=== PATIENT | male | born 1950 | race Caucasian/White ===

== ENCOUNTER 2017-01-27 06:27 | Inpatient (IN) ==
--- NOTE | 2017-01-27 06:58 | Anesthesia Evaluation PreOp ---
Date of Encounter: 01/27/17 Time of Encounter: 06:51 - Past History Planned Operation: Lapb sly with cholangiogram Cardiac History: Hyperlipidemia, Other (It is very difficult to communicate with Mr. De Anda. 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), Other (depression/ anxiety, chronic pain,) Other Medical History: Denies Any Significant HX, GERD Anesthesia History: Past Anesthesia (unknown) Alcohol Use: unknown Drug use: none Medications and Allergies Allergies bacitracin Allergy (Verified 10/18/16 16:47) Anaphylaxis Neomycin Allergy (Verified 10/18/16 16:47) Anaphylaxis polymyxin B Allergy (Verified 10/18/16 16:47) Anaphylaxis - Meds/Allergy Pre-op Review Medications Reviewed: Yes Allergies Reviewed: Yes Beta Blockers on Current Med List: No Anesthesia Results - Labs Laboratory Tests 10/18/16 01/15/17 17:04 09:10 Hgb 16.7 Hct 50.1 Plt Count 219 Sodium 141 Potassium 3.9 Creatinine 0.77 Anesthesia Exam O2 Sat Height 1.68 m Height 1.68 m Weight 77.111 kg Weight 77.111 kg O2 Sat by Pulse Oximetry 91 Vital Signs Temp Pulse Resp BP Pulse Ox 97.4 F L 102 16 122/79 91 01/27/17 06:44 01/27/17 06:44 01/27/17 06:44 01/27/17 06:44 01/27/17 06:44 Height: 1.68 Weight: 77 NPO (# of Hours): >8 - HEENT Pupil (Motor): Pupils equal, EOMI Mallampati: II Teeth: Edentulous Oral Opening: Greater than 3 - PUBLIC POLICY ASSOCIATE LOC: Unable to assess PUBLIC POLICY ASSOCIATE Motor: Normal LUE, Normal LLE, Normal Face, Deficit RUE, Deficit RLE PUBLIC POLICY ASSOCIATE Sensory: Normal: LUE, LLE, Face, Deficit: RUE, RLE - Cardiac Rhythm: Regular Murmur: None - Pulmonary Breath Sounds: bilateral Clear Respiratory Effort: Symmetrical Anesthesia Assess/Plan ASA Score: 3 (DO NOT USE SUXCONSENT IS PENDING FROM POA) Modified Severo Scale for Level of Consciousness: Cooperative, oriented, and tranquil Anesthetic Plan: General Monitoring Plan: Standard Monitors Recovery Plan: PACU
[2017-01-27] MEDS ORDERED: Ondansetron 4 MG/2 ML VIAL ONE ×2 (07:24→10:09)
[2017-01-27] MEDS ORDERED: *HR* Rocuronium Bromide 50 MG/5 ML VIAL ONE (07:24)
[2017-01-27] MEDS ORDERED: *HR* Propofol 200 MG/20 ML VIAL IVP ONE (07:24)
[2017-01-27] MEDS ORDERED: *HR* FentaNYL (PF) 100 MCG/2 ML VIAL ONE ×2 (07:24→08:34)
[2017-01-27] MEDS ORDERED: Lidocaine -MPF 2% 2 ML VIAL ONE (07:24)
[2017-01-27] MEDS ORDERED: cefOXitin 2,000 MG in D5% in Water (Mini-Bag+) 100 ML IVPB ONE (07:26)
--- NOTE | 2017-01-27 07:26 | History & Physical Report ---
Date of Encounter: 01/27/17 Time of Encounter: 07:25 24 Hour HP Update - Instructions Instructions: If the History and Physical is less than 30 days old and was completed prior to A.M. admission and or procedure and has NOT been updated on calendar day of procedure please complete this update prior to performing procedure. - Update Patient reports changes in Medical Condition: No Changes in examination, assessment, or condition: No Changes in Medication: No Surgery Remains Indicated: Yes Consent for Planned Operative Procedure(s) Verified: Yes - Pre-Operative Checklist Prophylactic Antibiotic Ordered: Yes Home Medications Include Beta Pilar: No Is VTE Prophylaxis Indicated?: Yes
[2017-01-27] MEDS: Ringers Solution, Lactated 1,000 ML IVC SCH ×2 (07:38→10:30)
[2017-01-27] MEDS ORDERED: *HR* HYDROmorphone 2 MG/ML SYRINGE ONE (08:33)
[2017-01-27] MEDS ORDERED: Neostigmine Methylsulfate 3 MG/3 ML SYRINGE ONE (09:36)
--- NOTE | 2017-01-27 09:57 | Operative Note ---
Date of procedure: 01/27/17 Pre-op diagnosis: acute cholecystisis Post-op diagnosis: same Procedure: laparoscopic converted to open cholecystectomy Complications: none immediate Anesthesia: GETA, local Local Anesthetics: 0.5% Sensorcaine HCL SubQ (cc) (30) Surgeon: Tanesha Ray Degree Clerk: Albina Berrios Estimated blood loss (cc): 100 Specimen: gallbladder Condition: stable Disposition: PACU Procedure in Detail: The patient was brought into the operating suite and placed supine on the operating table. Sign-in was performed and everyone was in agreement. Anesthesia was induced and patient was endotracheally intubated by anesthesia without incident and they also placed an OG tube. The abdomen was prepped and draped in the usual sterile fashion. A timeout was performed again everyone was in agreement. A supraumbilical incision was made through the skin into the subcutaneous tissue with an 11 blade. Towel clamps were placed on either side of the umbilicus for retraction. S retractors were used to dissect down to the anterior abdominal wall linea alba fascia. A Veress needle was placed through this incision and a water drop test confirmed placement and the abdomen was insufflated. The abdomen was entered with a 5 mm 0 degree laparoscope on a 5 mm X-jacob trocar. The area and entry was visualized was no bleeding and no apparent bowel injury. A 5 mm subxiphoid port was placed under direct visualization after first incising the skin with an 11 blade. A right upper quadrant subcostal position midclavicular line 5 mm port was placed under direct visualization after first incising skin with 11 blade. The laparoscope was placed in this and we exchanged the supraumbilical port for a 12 mm port under direct visualization. The last 5 mm port was placed in the right upper quadrant subcostal position anterior axillary line after first incising the skin with an 11 blade. The patient was placed in steep reverse Trendelenburg left side down position. the gallbladder was very distended tense erythematous Using a laparoscopic aspirator bile was aspirated from the gallbladder allowing it grasped at the domeand retracted cephalad. The infundibulum was grasped and retracted laterally but iIt was extremely friable and just tore. The area of the cystic duct and artery was very fibrotic and firm and dissection was extremely difficult. Attempts to identify the cystic duct and artery were unsuccessful with blunt dissection with suction tip, [place] and [place]. The decision was made to convert to open. Using a 15 blade a Kocker incision in the right upper quadrant was made through the skin into the subcutaneous tissue. Dissection through the external rectus sheath was done with Bovie. The rectus muscle was split with the bovie. The posterior rectus fascia was opened with the bovie and the incision extended. The dome of the gallbladder was grasped with a kocker. The gallbladder was taken down off the liver in a dome down fashion. Using a right angle the cystic artery was dissected and two 5 mm plastic hemoclips were placed proximally one distally and it was transected with metzenbaum scissors. The gallbladder was opened longitudinally in an attempt to help locate the cystic duct. The cystic duct was very short and dissected free bluntly with right angle and with cautery. Two 10 mm plastic hemoclips were placed distally on the cystic duct and it was transected with metzenbaum scissors. The RUQ was irrigated with sterile saline. A 10 mm SAIMA drain was placed into the gallbladder fossa after first making incision in right abdominal wall with 15 blade. The SAIMA drain was secured to the skin with a 2-0 silk stitch. The peritoneum was reapproximated with an 0 vicryl running stitch. THe posterior and anterior rectus fascia were each reapproximated with a #1 nonlooped running pds stitches. THe subcutaneous tissue was irrigated with sterile saline. The subcutaneous tissue was reapproximated with 3-0 vicryl interrupted stitches and the skin closed with glory. A drain sponge was placed at SAIMA drain site, 4x4 gauze and tape were applied to wound. The supraumbilical incision was closed first with an 0 vicryl figure of eight stitch at the fascia and the skin was closed with glory. The patient tolerated the procedure well and all lap and instrument counts were correct at the end of the case. He was taken to pacu in stable condition.
[2017-01-27] MEDS ORDERED: *HR* HYDROmorphone (PF) 1 MG/ML SYRINGE IVP PRN (10:07)
[2017-01-27] MEDS ORDERED: Ondansetron 4 MG/2 ML VIAL IVP PRN (10:07)
--- NOTE | 2017-01-27 10:29 | Anesthesia Evaluation Post Op ---
Date of Encounter: 01/27/17 Time of Encounter: 10:28 - Vital Signs Vital Signs: Vital Signs/O2 Sat/Glucose, Most Current Temp Pulse Resp BP Pulse Ox 01/27/17 10:12 98 12 105/78 94 01/27/17 10:02 92 12 143/82 95 01/27/17 09:52 98.5 F 92 12 131/81 98 01/27/17 07:39 97.4 F L 102 16 122/79 91 01/27/17 07:21 97.4 F L 102 16 122/79 91 01/27/17 06:44 97.4 F L 102 16 122/79 91 - Lungs Lungs: Clear Ascult./Percussion - Airway Airway: Non-obstructed - Cardiovascular Regular Rate - Mental Status Mental Status: Baseline Status - Pain Pain Scale: 1 Pain Scale used: Kings (Faces) - Nausea Vomiting Nausea Vomiting: Not Present - Hydration Hydration: NPO - Discharge PostOp Status: Transfer Patient to floor
[2017-01-27] MEDS ORDERED: *HR* Metoprolol 5 MG/5 ML VIAL IVP PRN (11:04)
[2017-01-27] MEDS ORDERED: Naloxone 0.4 MG/ML INJ IVP PRN (11:04)
[2017-01-27] MEDS: *HR* HYDROmorphone (PF) 1 MG/ML SYRINGE IVP PRN ×3 (11:34→19:23)
[2017-01-27] MEDS: 0.9 % Sodium Chloride 1,000 ML IVC SCH ×2 (11:41→21:04)
[2017-01-27] MEDS: Ipratropium/Albuterol Neb 3 ML IH SCH ×3 (12:02→22:31)
[2017-01-27] MEDS: Acetaminophen IV 500 MG/50 ML INFUS..BTL IVPB SCH ×2 (12:08→21:39)
[2017-01-27] MEDS: *HR* LORazepam 0.5 MG TABLET PO SCH (21:06)
[2017-01-27] MEDS: Valproic Acid 250 MG CAPSULE PO SCH (21:13)
[2017-01-28] MEDS: *HR* HYDROmorphone (PF) 1 MG/ML SYRINGE IVP PRN ×2 (02:00→05:55)
[2017-01-28] MEDS: Ipratropium/Albuterol Neb 3 ML IH SCH ×4 (03:23→20:19)
[2017-01-28] MEDS: 0.9 % Sodium Chloride 1,000 ML IVC SCH ×2 (05:55→16:48)
[2017-01-28 05:56] LABS: Basophils % 0.1 %; Hematocrit 34.8 % (37.5-50.1); Hemoglobin 11.8 g/dL (12.9-16.9); Immature Granulocytes % 0.5 % (0-4); Lymphocytes % 9.6 %; Mean Corpuscular HGB Conc 33.9 g/dL (31.6-35.5); Mean Corpuscular Hemoglobin 30.8 pg (28.0-33.3); Mean Corpuscular Volume 90.9 fL (83.0-100.0); Mean Platelet Volume 10.3 fL (9.4-12.4); Monocytes # 0.8 K/mcL (0.0-1.3); Monocytes % 7.3 %; Neutrophils # 8.7 K/mcL (1.6-8.9); Platelet Count 151 K/mcL (140-400); Red Blood Count 3.83 M/mcL (4.19-5.50); Red Cell Distribution Width 13.4 % (11.5-14.5); Segmented Neutrophils % 82.5 %
[2017-01-28 06:19] LABS: Alanine Aminotransferase 73 Units/L (0-55); Albumin/Globulin Ratio 0.4 (1.1-2.2); Alkaline Phosphatase 113 Units/L (38-126); Aspartate Amino Transferase 81 Units/L (5-34); BUN/Creatinine Ratio 28 (6-26); Bilirubin,Direct 0.4 mg/dL (0.0-0.5); Bilirubin,Indirect 0.2 mg/dL (0.0-1.2); Bilirubin,Total 0.6 mg/dL (0.2-1.2); Blood Urea Nitrogen 27 mg/dL (8-26); Calcium 8.6 mg/dL (8.6-10.8); Carbon Dioxide 23 mEq/L (19-29); Chloride 102 mEq/L (98-109); Globulin 3.7 g/dL (2.4-3.5); Glucose 130 mg/dL (70-99); Magnesium 1.1 mg/dL (1.6-2.6); Osmolality,Calculated 289 (280-300); Phosphorous 3.8 mg/dL (2.3-4.7); Potassium 4.7 mEq/L (3.5-4.5); Sodium 136 mEq/L (136-145); Total Protein 5.3 g/dL (6.0-8.3); eGFR For African Americans > 60 (> 60); eGFR For Non-African Americans > 60 (> 60)
[2017-01-28 06:21] LABS: Albumin 1.6 g/dL (3.5-5.0)
[2017-01-28] MEDS ORDERED: Magnesium Sulfate 2 GM in D5% in Water 100 ML IVPB ONE (08:09)
[2017-01-28] MEDS ORDERED: *HR* OxyCODONE Immed Rel 5 MG TABLET PO PRN (08:10)
[2017-01-28] MEDS: Multivit/Ca/Min/Fe/FA 1 TAB TABLET PO SCH (09:35)
[2017-01-28] MEDS: Methylphenidate HCl 5 MG TABLET PO SCH (09:35)
--- NOTE | 2017-01-28 12:16 | General Surgery Progress Note ---
Date of Encounter: 01/28/17 Time of Encounter: 12:10 - Assessment and Plan (1) Acute cholecystitis Current Visit: Yes Status: Acute POD #1 laparoscopic converted to open cholecystectomy with Dr. Ray Regular diet IV fluids SAIMA drain to bulb suction Supportive care/pain control IS every 1 hour while awake Repeat am labs patient with emesis, will place ngt, may need soft restraints npo, ivf hydration prn pain control (2) Seizure disorder Current Visit: Yes Status: Chronic Continue home medication regimen Seizure precautions (3) GERD (gastroesophageal reflux disease) Current Visit: Yes Status: Chronic PPI therapy daily Qualifiers: Esophagitis presence: esophagitis presence not specified Qualified Code(s) : K21.9 - Gastro-esophageal reflux disease without esophagitis (4) History of CVA (cerebrovascular accident) Current Visit: Yes Status: Acute Right sided paralysis (5) DVT prophylaxis Current Visit: Yes Status: Acute EPCDs to bilateral lower extremities for DVT prophylaxis Subjective Patient reports: still having pain (surgical), tolerating a regular diet (poor appetite, denies nausea/vomiting), voiding w/o difficulty (Patient denies difficulty, however nothing charted for UOP since surgery), flatus, no bowel movement, afebrile Narrative: nausea and emesis having RUQ pain but per nursing is refusing pain medication Objective Vital Signs - Last 8 Hours Temp Pulse Resp BP Pulse Ox 01/28/17 10:35 97.5 F L 90 17 129/80 93 01/28/17 08:40 97.4 F L 86 18 120/77 94 Intake and Output 01/27/17 01/28/17 01/28/17 23:59 07:59 15:59 Intake Total 1700 / 1700 1100 / 1100 104 / 104 Output Total 40 / 40 0 / 0 25 / 25 Balance 1660 / 1660 1100 / 1100 79 / 79 Intake: IV Fluids 1050 / 1050 1000 / 1000 104 / 104 0.9 % Sodium Chloride 1, 1000 / 1000 1000 / 1000 000 ML @ 100 mls/hr IVC . Q10H DAVIDE Rx#:[id number] Ofirmev 500 mg In 50 ml @ 50 / 50 200 mls/hr IVPB BID DAVIDE Rx#:[id number] Magnesium Sulfate 2 GM In 104 / 104 Dextrose 5% 100 ML @ 100 mls/hr IVPB ONCE ONE Rx# :[id number] Oral 650 / 650 100 / 100 Output: Urine 0 / 0 Wound Drainage 40 / 40 0 / 0 Right Lower Abdomen 40 / 40 0 / 0 Other: Meal Breakfast Percent of Meal Consumed 5% # Urine Diapers 0 1 1 Weight 78.103 kg Patient Weight 01/28/17 23:59 Weight 78.103 kg - General physical appearance well developed, no distress, moderate distress, moderate pain - Eyes PERRL, normal ocular movement - ENT normal mucosa, atraumatic, normocephalic - Neck Neck exam: trachea midline - Respiratory normal respiratory effort, clear to auscultation, other (diminished bibasilar bases) - Cardiovascular Cardiovascular exam: Present: RRR - Abdomen Abdomen: Present: bowel sounds present (hypoactive), soft, distended, tender ( expected post-operative tenderness), wound (SAIMA drain to bulb suction with serousang. drainage noted (approximately 35ml noted since midnight)) - Incision Incision: Present: clean and dry, intact - Neurologic other (upper extremity (right) contracture) - Psychiatric oriented to person, oriented to place - Labs 01/28/17 05:17 01/28/17 05:17 Diabetes panel 01/28/17 Range/Units 05:17 Sodium 136 (136-145) mEq/L Potassium 4.7 H (3.5-4.5) mEq/L Chloride 102 (98-109) mEq/L Carbon Dioxide 23 (19-29) mEq/L BUN 27 H (8-26) mg/dL Creatinine 0.96 (0.72-1.25) mg/dL Glucose 130 H (70-99) mg/dL Calcium 8.6 (8.6-10.8) mg/dL AST 81 H (5-34) Units/L ALT 73 H (0-55) Units/L Alkaline Phosphatase 113 (38-126) Units/L Albumin 1.6 L (3.5-5.0) g/dL Calcium panel 01/28/17 Range/Units 05:17 Calcium 8.6 (8.6-10.8) mg/dL Phosphorus 3.8 (2.3-4.7) mg/dL Albumin 1.6 L (3.5-5.0) g/dL Pituitary panel 01/28/17 Range/Units 05:17 Sodium 136 (136-145) mEq/L Potassium 4.7 H (3.5-4.5) mEq/L Chloride 102 (98-109) mEq/L Carbon Dioxide 23 (19-29) mEq/L BUN 27 H (8-26) mg/dL Creatinine 0.96 (0.72-1.25) mg/dL Glucose 130 H (70-99) mg/dL Calcium 8.6 (8.6-10.8) mg/dL Adrenal panel 01/28/17 Range/Units 05:17 Sodium 136 (136-145) mEq/L Potassium 4.7 H (3.5-4.5) mEq/L Chloride 102 (98-109) mEq/L Carbon Dioxide 23 (19-29) mEq/L BUN 27 H (8-26) mg/dL Creatinine 0.96 (0.72-1.25) mg/dL Glucose 130 H (70-99) mg/dL Calcium 8.6 (8.6-10.8) mg/dL Total Bilirubin 0.6 (0.2-1.2) mg/dL AST 81 H (5-34) Units/L ALT 73 H (0-55) Units/L Alkaline Phosphatase 113 (38-126) Units/L Albumin 1.6 L (3.5-5.0) g/dL Vital Signs Temp Pulse Resp BP Pulse Ox 01/28/17 19:15 99.5 F 92 14 162/77 97 01/28/17 10:35 97.5 F L 90 17 129/80 93 01/28/17 08:40 97.4 F L 86 18 120/77 94 01/28/17 04:04 98.1 F 85 18 119/78 93 01/27/17 23:35 97.9 F 83 16 126/82 93 01/27/17 22:31 90 Intake and Output 01/28/17 01/28/17 01/28/17 07:59 15:59 23:59 Intake Total 1100 / 1100 879 / 879 375 / 375 Output Total 0 / 0 125 / 125 700 / 700 Balance 1100 / 1100 754 / 754 -325 / -325 Intake: IV Fluids 1000 / 1000 879 / 879 375 / 375 0.9 % Sodium Chloride 1, 1000 / 1000 625 / 625 375 / 375 000 ML @ 100 mls/hr IVC . Q10H [facility]IDE Rx#:[id number] Ofirmev 500 mg In 50 ml @ 50 / 50 200 mls/hr IVPB BID DAVIDE Rx#:[id number] Magnesium Sulfate 2 GM In 104 / 104 Dextrose 5% 100 ML @ 100 mls/hr IVPB ONCE ONE Rx# :[id number] Oral 100 / 100 0 / 0 Output: Emesis 100 / 100 Catheter 300 / 300 Gastric Drainage 400 / 400 Wound Drainage 0 / 0 25 / 25 0 / 0 Right Lower Abdomen 0 / 0 25 / 25 0 / 0 Other: Meal Breakfast kept lunch Percent of Meal Consumed 5% # Urine Diapers 1 1 Weight 78.103 kg Patient Weight 01/28/17 23:59 Weight 78.103 kg - VTE Documentation of Mechanical Device: Intermittent pneumatic compression device Consult Discharge Plan - Plan Referrals: Deonna Shine CNP [Advanced Practice Nurse] - 02/03/17 9:15 am [facility]PCP [Primary Care Provider] - - Attending Attestation I examined this patient and my medical decision-making was reviewed with the FARM PLANNER/PA/Advanced Practice Nurse/Resident Physician. I agree with the documented findings, disposition and treatment plan as described except to the extent set forth below. I examined this patient and my medical decision-making was reviewed with the FARM PLANNER/PA/Advanced Practice Nurse/Resident Physician. I agree with the documented findings, disposition and treatment plan as described except to the extent set forth below.
[2017-01-28] MEDS: Acetaminophen IV 500 MG/50 ML INFUS..BTL IVPB SCH (13:10)
[2017-01-28] MEDS: *HR* Promethazine 25 MG/ML VIAL IVP PRN (13:11)
[2017-01-28] MEDS ORDERED: Valproic Acid Oral Soln 250 MG/5 ML UDC GTUBE SCH ×2 (22:00→22:15)
[2017-01-28] MEDS: *HR* LORazepam 0.5 MG TABLET PO SCH (23:37)
[2017-01-28] MEDS: Valproic Acid 250 MG CAPSULE PO SCH (23:38)
[2017-01-29] MEDS: Acetaminophen IV 500 MG/50 ML INFUS..BTL IVPB SCH ×3 (00:03→21:17)
[2017-01-29] MEDS: *HR* HYDROmorphone (PF) 1 MG/ML SYRINGE IVP PRN ×4 (00:43→20:45)
[2017-01-29] MEDS: *HR* Promethazine 25 MG/ML VIAL IVP PRN (01:03)
[2017-01-29] MEDS: 0.9 % Sodium Chloride 1,000 ML IVC SCH ×3 (03:00→12:32)
[2017-01-29] MEDS: Ipratropium/Albuterol Neb 3 ML IH SCH ×4 (04:11→22:50)
[2017-01-29 05:39] LABS: Basophils % 0.1 %; Hematocrit 34.2 % (37.5-50.1); Hemoglobin 11.4 g/dL (12.9-16.9); Immature Granulocytes % 0.6 % (0-4); Lymphocytes % 13.7 %; Mean Corpuscular HGB Conc 33.3 g/dL (31.6-35.5); Mean Corpuscular Hemoglobin 30.7 pg (28.0-33.3); Mean Corpuscular Volume 92.2 fL (83.0-100.0); Mean Platelet Volume 10.2 fL (9.4-12.4); Monocytes # 0.7 K/mcL (0.0-1.3); Monocytes % 9.2 %; Neutrophils # 5.5 K/mcL (1.6-8.9); Platelet Count 130 K/mcL (140-400); Red Blood Count 3.71 M/mcL (4.19-5.50); Red Cell Distribution Width 13.6 % (11.5-14.5); Segmented Neutrophils % 76.4 %
[2017-01-29 05:50] LABS: Alanine Aminotransferase 41 Units/L (0-55); Albumin 1.5 g/dL (3.5-5.0); Albumin/Globulin Ratio 0.4 (1.1-2.2); Alkaline Phosphatase 86 Units/L (38-126); Aspartate Amino Transferase 41 Units/L (5-34); BUN/Creatinine Ratio 24 (6-26); Bilirubin,Direct 0.2 mg/dL (0.0-0.5); Bilirubin,Indirect 0.2 mg/dL (0.0-1.2); Bilirubin,Total 0.4 mg/dL (0.2-1.2); Blood Urea Nitrogen 17 mg/dL (8-26); Calcium 8.1 mg/dL (8.6-10.8); Carbon Dioxide 26 mEq/L (19-29); Chloride 104 mEq/L (98-109); Globulin 3.8 g/dL (2.4-3.5); Glucose 102 mg/dL (70-99); Osmolality,Calculated 284 (280-300); Potassium 4.1 mEq/L (3.5-4.5); Sodium 136 mEq/L (136-145); Total Protein 5.3 g/dL (6.0-8.3); eGFR For African Americans > 60 (> 60); eGFR For Non-African Americans > 60 (> 60)
[2017-01-29 08:00] LABS: Magnesium 1.7 mg/dL (1.6-2.6)
--- NOTE | 2017-01-29 08:26 | General Surgery Progress Note ---
Date of Encounter: 01/29/17 Time of Encounter: 12:10 - Assessment and Plan (1) Acute cholecystitis Current Visit: Yes Status: Acute POD #2 laparoscopic converted to open cholecystectomy with Dr. Ray Patient had diet advanced yesterday to regular naranjo. He then began to vomit and he required NG tube placement and NPO diet. Patient pulled out NG after it was initially placed and soft restraints were requested, however d/t his seizure hx he cannot have soft restraints. Pt. was educated about the need to decompress his stomach, and leave his NG in for now. His vomiting is most likely from a post-operative Ileus. NG- LIWS/HOB 30* NPO IV fluids SAIMA drain to bulb suction with bilious drainage - will check HIDA for leak Supportive care/pain control IS every 1 hour while awake Repeat am labs (2) Seizure disorder Current Visit: Yes Status: Chronic Continue home medication regimen Seizure precautions medication changed to iv (3) GERD (gastroesophageal reflux disease) Current Visit: Yes Status: Chronic PPI therapy, IV Qualifiers: Esophagitis presence: esophagitis presence not specified Qualified Code(s) : K21.9 - Gastro-esophageal reflux disease without esophagitis (4) History of CVA (cerebrovascular accident) Current Visit: Yes Status: Acute right side paralysis (5) DVT prophylaxis Current Visit: Yes Status: Acute EPCDs to bilateral lower extremities for DVT prophylaxis (6) Postoperative ileus Current Visit: Yes Status: Acute post operative ileus is unfortunately and expected postoperative outcome of this surgery, continue ngt decompression, serial abdom exams, will get films in am Subjective Narrative: Patient seen and examined. Sleeping this am. Last evening he began vomiting most likely d/t a post-operative ileus. An NG was placed. He also had a bladder scan which had residual of >300 and therefore a granado catheter was placed. He did have a febrile episode overnight with TMAX 100.4. patient complains of nausea and abdominal distention and pain ngt in place Objective Vital Signs - Last 8 Hours Temp Pulse Resp BP Pulse Ox 01/29/17 07:20 99.8 F H 88 15 145/72 93 01/29/17 03:29 98.3 F 85 14 160/71 97 Intake and Output 01/28/17 01/29/17 01/29/17 23:59 07:59 15:59 Intake Total 375 / 375 1000 / 1000 Output Total 700 / 700 445 / 445 Balance -325 / -325 555 / 555 Intake: IV Fluids 375 / 375 1000 / 1000 0.9 % Sodium Chloride 1, 375 / 375 1000 / 1000 000 ML @ 100 mls/hr IVC . Q10H DAVIDE Rx#:[id number] Oral 0 / 0 0 / 0 Output: Catheter 300 / 300 400 / 400 Gastric Drainage 400 / 400 25 / 25 Right Nare 0 / 0 25 / 25 Wound Drainage 0 / 0 20 / 20 Right Lower Abdomen 0 / 0 20 / Other: Meal kept lunch Blood Glucose* 89 115 - General physical appearance moderate distress, moderate pain - Eyes PERRL, normal ocular movement - ENT dry mucosa, atraumatic, normocephalic - Neck Neck exam: trachea midline - Respiratory normal expansion, clear to auscultation - Cardiovascular Cardiovascular exam: Present: RRR - Abdomen Abdomen: Present: soft, distended, tender. Absent: bowel sounds present, guarding, rebound - Incision Incision: Present: clean and dry, intact - Integumentary no rash, no growths - Neurologic CN 2-12 grossly intact - Musculoskeletal normal posture - Psychiatric oriented to person - Additional Exam - General physical appearance well developed, no distress, moderate distress, moderate pain - Eyes PERRL, normal ocular movement - ENT normal mucosa, atraumatic, normocephalic, NG in place (400 out yesterday) - Neck Neck exam: trachea midline - Respiratory normal respiratory effort, clear to auscultation, other (diminished bibasilar bases) - Cardiovascular Cardiovascular exam: Present: RRR - Abdomen Abdomen: Present: bowel sounds present (hypoactive), soft, distended, tender ( expected post-operative tenderness), wound (SAIMA drain to bulb suction with serousang. drainage noted (approximately 25ml yesterday) - Incision Incision: Present: clean and dry, intact - Neurologic other (upper extremity (right) contracture) - Psychiatric oriented to person, oriented to place - Labs 01/29/17 05:15 01/29/17 05:15 Short CBC 01/29/17 Range/Units 05:15 WBC 7.2 (4.3-11.1) K/mcL Hgb 11.4 L (12.9-16.9) g/dL Hct 34.2 L (37.5-50.1) % Plt Count 130 L (140-400) K/mcL Neutrophils # 5.5 (1.6-8.9) K/mcL BMP 01/29/17 Range/Units 05:15 Sodium 136 (136-145) mEq/L Potassium 4.1 (3.5-4.5) mEq/L Chloride 104 (98-109) mEq/L Carbon Dioxide 26 (19-29) mEq/L BUN 17 D (8-26) mg/dL Creatinine 0.72 (0.72-1.25) mg/dL Glucose 102 H (70-99) mg/dL Calcium 8.1 L (8.6-10.8) mg/dL Liver Function 01/29/17 Range/Units 05:15 Total Bilirubin 0.4 (0.2-1.2) mg/dL Direct Bilirubin 0.2 (0.0-0.5) mg/dL AST 41 H (5-34) Units/L ALT 41 (0-55) Units/L Alkaline Phosphatase 86 (38-126) Units/L Albumin 1.5 L (3.5-5.0) g/dL Vital Signs Temp Pulse Resp BP Pulse Ox 01/29/17 12:05 98.2 F 90 18 125/71 90 01/29/17 07:20 99.8 F H 88 15 145/72 93 01/29/17 03:29 98.3 F 85 14 160/71 97 01/28/17 23:35 100.4 F H 100 16 157/77 94 01/28/17 19:15 99.5 F 92 14 162/77 97 Intake and Output 01/29/17 01/29/17 01/29/17 07:59 15:59 23:59 Intake Total 1050 / 1050 1050 / 1050 Output Total 445 / 445 Balance 605 / 605 1050 / 1050 Intake: IV Fluids 1050 / 1050 1050 / 1050 0.9 % Sodium Chloride 1, 1000 / 1000 1000 / 1000 000 ML @ 100 mls/hr IVC . Q10H [facility]IDE Rx#:[id number] Ofirmev 500 mg In 50 ml @ 50 / 50 50 / 50 200 mls/hr IVPB BID [facility] Rx#:[id number] Oral 0 / 0 Output: Catheter 400 / 400 Gastric Drainage 25 / 25 Right Nare 25 / 25 Wound Drainage 20 / 20 Right Lower Abdomen 20 / 20 Other: Meal NPO Blood Glucose* 115 94 - VTE Documentation of Mechanical Device: Intermittent pneumatic compression device Consult Discharge Plan - Plan Referrals: Deonna Shine ED CASE MANAGER [Advanced Practice Nurse] - 02/03/17 9:15 am [facility]PC[facility] [Primary Care Provider] - - Attending Attestation I examined this patient and my medical decision-making was reviewed with the EXPANDED DUTY DENTAL ASSISTANT/PA/Advanced Practice Nurse/Resident Physician. I agree with the documented findings, disposition and treatment plan as described except to the extent set forth below.
[2017-01-29] MEDS: Methylphenidate HCl 5 MG TABLET PO SCH (09:37)
[2017-01-29] MEDS: Multivit/Ca/Min/Fe/FA 1 TAB TABLET PO SCH (09:37)
[2017-01-29] MEDS ORDERED: *HR* HYDROmorphone (PF) 1 MG/ML SYRINGE IVP ONE (11:07)
[2017-01-29] MEDS ORDERED: *HR* HYDROmorphone (PF) 1 MG/ML SYRINGE IM ONE (11:15)
[2017-01-29] MEDS: Pantoprazole 40 MG VIAL IVP SCH (12:27)
[2017-01-29] MEDS ORDERED: *HR* LORazepam 2 MG/ML VIAL IVP ONE (14:21)
[2017-01-29] MEDS ORDERED: *HR* LORazepam 2 MG/ML VIAL ONE (14:27)
[2017-01-29] MEDS ORDERED: Water for inj. (sterile) 10 ML IV ONE (14:27)
[2017-01-29] MEDS ORDERED: Lidocaine -MPF 1% 5 ML AMPUL INFILT ONE (16:05)
[2017-01-29] MEDS: Valproic Acid INJ 500 MG in 0.9 % Sodium Chloride 100 ML IVPB SCH ×2 (16:45→23:54)
[2017-01-30] MEDS: 0.9 % Sodium Chloride 1,000 ML IVC SCH ×4 (02:53→23:19)
[2017-01-30] MEDS: *HR* HYDROmorphone (PF) 1 MG/ML SYRINGE IVP PRN ×5 (03:09→18:47)
[2017-01-30 04:08] LABS: Basophils % 0.2 %; Eosinophils % 0.1 %; Hematocrit 31.9 % (37.5-50.1); Hemoglobin 10.5 g/dL (12.9-16.9); Immature Granulocytes % 0.9 % (0-4); Lymphocytes % 10.5 %; Mean Corpuscular HGB Conc 32.9 g/dL (31.6-35.5); Mean Corpuscular Hemoglobin 30.4 pg (28.0-33.3); Mean Corpuscular Volume 92.5 fL (83.0-100.0); Mean Platelet Volume 9.6 fL (9.4-12.4); Monocytes % 11.5 %; Neutrophils # 6.9 K/mcL (1.6-8.9); Platelet Count 159 K/mcL (140-400); Red Blood Count 3.45 M/mcL (4.19-5.50); Red Cell Distribution Width 13.8 % (11.5-14.5); Segmented Neutrophils % 76.8 %
[2017-01-30 04:17] LABS: BUN/Creatinine Ratio 20 (6-26); Blood Urea Nitrogen 14 mg/dL (8-26); Calcium 8.3 mg/dL (8.6-10.8); Carbon Dioxide 24 mEq/L (19-29); Chloride 106 mEq/L (98-109); Glucose 87 mg/dL (70-99); Osmolality,Calculated 290 (280-300); Potassium 3.7 mEq/L (3.5-4.5); Sodium 140 mEq/L (136-145); eGFR For African Americans > 60 (> 60); eGFR For Non-African Americans > 60 (> 60)
[2017-01-30] MEDS: Ipratropium/Albuterol Neb 3 ML IH SCH ×4 (04:28→22:41)
[2017-01-30] MEDS: Valproic Acid INJ 500 MG in 0.9 % Sodium Chloride 100 ML IVPB SCH ×2 (09:34→16:42)
[2017-01-30] MEDS: Pantoprazole 40 MG VIAL IVP SCH (09:35)
[2017-01-30] MEDS: *HR* Promethazine 25 MG/ML VIAL IVP PRN (09:51)
[2017-01-30] MEDS: Multivit/Ca/Min/Fe/FA 1 TAB TABLET PO SCH (09:55)
--- NOTE | 2017-01-30 09:56 | General Surgery Progress Note ---
Date of Encounter: 01/30/17 Time of Encounter: 12:00 - Assessment and Plan (1) Acute cholecystitis Current Visit: Yes Status: Acute POD #3 laparoscopic converted to open cholecystectomy performed by Dr. Ray He has worsening abdominal distention, pain, and nausea. He is now having bilious drainage in his SAIMA drain from a presumed bile leak. His NG tube put out 325 ml last 24 hours. A nuclear med hepatobiliary scan revealed no bile leak. NG- LIWS NPO IV fluids SAIMA drain to bulb suction Supportive care/pain control IS every 1 hour while awake Repeat am labs CT scan abd/pelvis to ensure no further nondrained fluid collections start abx GI consulted for bile leak as evident by bile in SAIMA drain despite HIDA showing no evidence of leak (2) Seizure disorder Current Visit: Yes Status: Chronic continue IV antiseizure medication (3) GERD (gastroesophageal reflux disease) Current Visit: Yes Status: Chronic PPI Qualifiers: Esophagitis presence: esophagitis presence not specified Qualified Code(s) : K21.9 - Gastro-esophageal reflux disease without esophagitis (4) History of CVA (cerebrovascular accident) Current Visit: Yes Status: Acute right side paralysis (5) DVT prophylaxis Current Visit: Yes Status: Acute EPCDs to bilateral lower extremities for DVT prophylaxis heparin sq (6) Postoperative ileus Current Visit: Yes Status: Acute post op ileus is not unexpected given surgical procedure and bile leak (7) Bile leak, postoperative Current Visit: Yes Status: Acute consult GI Subjective Narrative: Patient seen and examined. He just received a dose of dilaudid and is very sleepy. He has been afebrile last 24 hrs. Mild tachycardia at 96 bpm. His SAIMA drain has bilious drainage. Has significant abdominal distention. complaining of abdominal pain and nausea, passing flatus (medical student heard) Objective Vital Signs - Last 8 Hours Temp Pulse Resp BP Pulse Ox 01/30/17 06:46 98.7 F 96 20 160/93 91 01/30/17 04:49 97.6 F 96 16 135/72 92 Intake and Output 01/29/17 01/30/17 01/30/17 23:59 07:59 15:59 Intake Total 655 / 655 756 / 756 Output Total 680 / 680 320 / 320 0 / 0 Balance -25 / -25 436 / 436 0 / 0 Intake: IV Fluids 655 / 655 756 / 756 0.9 % Sodium Chloride 1, 500 / 500 651 / 651 000 ML @ 100 mls/hr IVC . Q10H [facility] Rx#:[id number] Ofirmev 500 mg In 50 ml @ 50 / 50 200 mls/hr IVPB BID [facility]IDE Rx#:[id number] Depacon 500 MG In 0.9 % 105 / 105 105 / 105 Sodium Chloride 100 ML @ 100 mls/hr IVPB Q8HR [facility] Rx#:[id number] Oral 0 / 0 0 / 0 Output: Catheter 350 / 350 250 / 250 Gastric Drainage 300 / 300 0 / 0 Wound Drainage 30 / 30 70 / 70 0 / 0 Right Lower Abdomen 30 / 30 70 / 70 0 / 0 Other: Blood Glucose* 97 91 - General physical appearance cachectic, chronically ill - Eyes PERRL, normal ocular movement - ENT dry mucosa, atraumatic, normocephalic - Neck Neck exam: trachea midline - Respiratory normal expansion, clear to auscultation - Cardiovascular Cardiovascular exam: Present: RRR - Abdomen Abdomen: Present: bowel sounds present, soft, tender (appropriate post op tenderness) - Incision Incision: Present: clean and dry, intact - Genitourinary other (granado with clear yellow urine) - Integumentary no rash, no growths - Neurologic other (able to communicate with yes/no questions) - Psychiatric oriented to time, oriented to person, oriented to place - Additional Exam - General physical appearance moderate distress, moderate pain - Eyes PERRL, normal ocular movement - ENT dry mucosa, atraumatic, normocephalic - Neck Neck exam: trachea midline - Respiratory normal expansion, clear to auscultation - Cardiovascular Cardiovascular exam: Present: RRR - Abdomen Abdomen: Present: soft, distended, tender. Absent: bowel sounds present, guarding, rebound SAIMA drain - 70ml bilious drainage - Incision Incision: Present: clean and dry, intact - Integumentary no rash, no growths - Neurologic CN 2-12 grossly intact - Musculoskeletal normal posture - Psychiatric oriented to person - Labs 01/31/17 08:50 01/31/17 03:41 Diabetes panel 01/30/17 Range/Units 04:00 Sodium 140 (136-145) mEq/L Potassium 3.7 (3.5-4.5) mEq/L Chloride 106 (98-109) mEq/L Carbon Dioxide 24 (19-29) mEq/L BUN 14 (8-26) mg/dL Creatinine 0.71 L (0.72-1.25) mg/dL Glucose 87 (70-99) mg/dL Calcium 8.3 L (8.6-10.8) mg/dL Calcium panel 01/30/17 Range/Units 04:00 Calcium 8.3 L (8.6-10.8) mg/dL Pituitary panel 01/30/17 Range/Units 04:00 Sodium 140 (136-145) mEq/L Potassium 3.7 (3.5-4.5) mEq/L Chloride 106 (98-109) mEq/L Carbon Dioxide 24 (19-29) mEq/L BUN 14 (8-26) mg/dL Creatinine 0.71 L (0.72-1.25) mg/dL Glucose 87 (70-99) mg/dL Calcium 8.3 L (8.6-10.8) mg/dL Adrenal panel 01/30/17 Range/Units 04:00 Sodium 140 (136-145) mEq/L Potassium 3.7 (3.5-4.5) mEq/L Chloride 106 (98-109) mEq/L Carbon Dioxide 24 (19-29) mEq/L BUN 14 (8-26) mg/dL Creatinine 0.71 L (0.72-1.25) mg/dL Glucose 87 (70-99) mg/dL Calcium 8.3 L (8.6-10.8) mg/dL - Imaging CT scan - abdomen: report reviewed, image reviewed CT scan - pelvis: report reviewed, image reviewed - VTE Documentation of Mechanical Device: Intermittent pneumatic compression device Consult Discharge Plan - Plan Referrals: Deonna Shine CNP [Advanced Practice Nurse] - 02/03/17 9:15 am [facility] Care Provider[facility] - - Attending Attestation I examined this patient and my medical decision-making was reviewed with the SUPERVISOR SHEET MANUFACTURING/PA/Advanced Practice Nurse/Resident Physician. I agree with the documented findings, disposition and treatment plan as described except to the extent set forth below.
--- NOTE | 2017-01-30 12:04 | Gastroenterology Consult Note ---
<De La FuenteCornelio Shetty - Last Filed: 01/30/17 12:01> Date of Encounter: 01/30/17 Time of Encounter: 11:50 - Assessment and plan (1) Bile leak, postoperative Current Visit: Yes Status: Acute Assessment and plan: SAIMA drain with bilious drainage. HIDA scan did not show bile leak. Plan for ERCP tomorrow. Continue NPO. Pt unable to consent, I called Medical POA Mohamud Pardo at [phone] and [phone] without success. I attempted to reach Jose Elias Pardo at [phone] and that number has been disconnected. (2) Acute cholecystitis Current Visit: Yes Status: Acute Assessment and plan: S/p laparoscopic converted to open cholecystectomy. SAIMA drain with bilious drainage noted. 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 (4) Postoperative ileus Current Visit: Yes Status: Acute Assessment and plan: Patient with NG tube in place. Consider TPN. - Time Spent With Patient Total time spent is greater than 50% in coordination of care (as documented) at patient's floor/unit and/or counseling patient: GI History of Present Illness - Data of Consult Patient: new to practice Consult date: 01/30/17 Requesting Physician: Tanesha Ray MD - Consult Narrative Reason for consult: Bile leak History of present illness: Mr. De Anda is a 67 year old male with PMHx seizure disorder, GERD, CVA with right side paralyzation who was admitted for gallbladder surgery. Pt had laparoscopic converted to open cholecystectomy with Dr. Ray on 01/27/17. SAIMA drain was placed during surgery. Today, SAIMA drain began having bilious drainage from presumed bile leak. HIDA scan scan showed no bile leak. We were consulted for bile leak. Pt is nonverbal, and no family members at bedside. History obtained from medical record. He is able to answer yes/no questions by nodding/ shaking head. Procedures: None NSAIDs: ASA Anticoagulation: None Past Med Surg Social Fam HX - Past Medical History Medical history: CVA, GERD, hyperlipidemia, seizures Psychiatric history: anxiety, depression, other - Past Surgical History Surgical History: non-contributory - Social History Smoking Status: Unknown if ever smoked Smokeless Tobacco Status: No Alcohol use: unknown Drug use: none - Gastrointestinal Gastrointestinal: Present: as per HPI - Constitutional Constitutional: as per HPI - EENT Eyes: as per HPI Ears: Present: as per HPI Nose, mouth and throat: Present: as per HPI - Cardiovascular Cardiovascular ROS: Present: as per HPI - Respiratory Respiratory IM: Present: as per HPI - Genitourinary Genitourinary: Absent: change in color, Urinary frequency - Neurological ROS Neurological GI: Present: as per HPI - Hematologic/Lymphatic Hematologic/Lymphatic pediatric: Present: as per HPI - Musculoskeletal Musculoskeletal ROS GI: Present: as per HPI - Integumentary Integumentary GI: Present: as per HPI - Psychiatric ROS Psychiatric GI: Present: as per HPI - Endocrine Endocrine IM: Present: as per HPI - Constitutional Vitals: Temp Pulse Resp BP Pulse Ox 98.7 F 89 14 114/83 95 01/30/17 06:46 01/30/17 10:00 01/30/17 10:00 01/30/17 10:00 01/30/17 10:00 General appearance: Present: cooperative, no acute distress, answers questions appropriately Exam: Unable to verbalize answers, but answers yes/no questions appropriately. - Head Head exam: Present: atraumatic, normocephalic - Eye Eye exam: Present: normal appearance, sclera anicteric - ENT ENT exam: Present: mucous membranes dry - Neck Neck exam general surgery: Present: normal inspection, trachea midline - Respiratory Respiratory exam: Present: decreased breath sounds, CTAB - Cardiovascular Cardiovascular exam: Present: RRR, +S1, +S2 - GI/Abdominal GI/Abdominal exam: Present: distended, soft, tenderness (generalized), no peritoneal signs. Absent: firm, guarding - Rectal Rectal exam: Present: deferred - Extremities Exam Extremities exam: Present: warm Additional comments: Right hand contracture. - Neurological Exam Neurological exam: Present: no focal deficits Additional comments: Unable to form words s/p CVA 2010. Right sided weakness. - Psychiatric Psychiatric exam: Present: normal affect, normal mood - Skin Skin exam: Present: dry, intact, normal color, warm Results - Labs CBC & Chem 7: 01/30/17 04:00 01/30/17 04:00 Labs: Last Result Calcium 8.3 mg/dL (8.6-10.8) L 01/30/17 04:00 Entire Visit Hgb 10.5 g/dL (12.9-16.9) L 01/30/17 04:00 Hct 31.9 % (37.5-50.1) L 01/30/17 04:00 Total Bilirubin 0.4 mg/dL (0.2-1.2) 01/29/17 05:15 AST 41 Units/L (5-34) H 01/29/17 05:15 ALT 41 Units/L (0-55) 01/29/17 05:15 - Impressions Impressions Bile Acid Absorption NM 01/29/17 13:25 IMPRESSION: No evidence for bile leak. D/ / Josep Randhawa MD / Josep Randhawa MD Interpreting Provider: Josep Randhawa MD Abdomen X-Ray 01/30/17 08:00 IMPRESSION: 1. Enteric tube coiled in the stomach at the level of the cardia with the tip directed towards the fundus. 2. No significant adynamic ileus. D/ / 01/30/2017 11:54:42 Sunny Vega MD / shauna Interpreting Provider: Sunny Vega MD Consult Discharge Plan - Plan Referrals: Deonna Shine, [facility] [Advanced Practice Nurse] - 02/03/17 9:15 am [facility] [Primary Care Provider[facility] - <Kael Brown - Last Filed: 01/30/17 20:26> Date of Encounter: 01/30/17 Time of Encounter: 18:00 - Time Spent With Patient Total time spent is greater than 50% in coordination of care (as documented) at patient's floor/unit and/or counseling patient: GI History of Present Illness - Data of Consult Requesting Physician: Tanesha Ray MD - Consult Narrative History of present illness: Mr. De Anda is a 67 year old male - Constitutional Vitals: Temp Pulse Resp BP Pulse Ox 98.8 F 97 18 151/83 93 01/30/17 12:03 01/30/17 12:03 01/30/17 12:03 01/30/17 12:03 01/30/17 12:03 Results - Labs CBC & Chem 7: 01/30/17 04:00 01/30/17 04:00 Labs: Last Result Calcium 8.3 mg/dL (8.6-10.8) L 01/30/17 04:00 Entire Visit Hgb 10.5 g/dL (12.9-16.9) L 01/30/17 04:00 Hct 31.9 % (37.5-50.1) L 01/30/17 04:00 Total Bilirubin 0.4 mg/dL (0.2-1.2) 01/29/17 05:15 AST 41 Units/L (5-34) H 01/29/17 05:15 ALT 41 Units/L (0-55) 01/29/17 05:15 - Impressions Impressions Bile Acid Absorption NM 01/29/17 13:25 IMPRESSION: No evidence for bile leak. D/ / Josep Randhawa MD / Josep Randhawa MD Interpreting Provider: Josep Randhawa MD Abdomen X-Ray 01/30/17 08:00 IMPRESSION: 1. Enteric tube coiled in the stomach at the level of the cardia with the tip directed towards the fundus. 2. No significant adynamic ileus. D/ / 01/30/2017 11:54:42 Sunny Vega MD / shauna Interpreting Provider: Sunny Vega MD Abdomen/Pelvis CT 01/30/17 13:36 IMPRESSION: Given the additional information of a recent postoperative CT examination, correlated with the recent nuclear medicine exam, there is a small collection of fluid seen just anterior to the liver surface, as well as focally along the surgical drain, axial images 34 and 47, suspicious for a small amount of fluid related to a bile leak. There is a small fluid and gas collection seen in the right mid abdomen, measuring 2.5 x 1.8 cm suspicious for a postoperative abscess. However, this collection is too small for the ability to place a percutaneous drain. Small hiatal hernia. The enteric tube is coiled within the gastric antrum. Postsurgical changes are seen in the right lateral abdominal wall and supraumbilical region. D/ / Angel Nash MD / Angel Nash MD Interpreting Provider: Angel Nash MD - Attending Attestation I examined this patient and my medical decision-making was reviewed with the RAILWAY TRACK PLANT OPERATOR/PA/Advanced Practice Nurse/Resident Physician. I agree with the documented findings, disposition and treatment plan as described except to the extent set forth below.
[2017-01-30] MEDS: Acetaminophen IV 500 MG/50 ML INFUS..BTL IVPB SCH (12:42)
[2017-01-30] MEDS ORDERED: Lidocaine -MPF 1% 5 ML AMPUL INFILT ONE (13:30)
[2017-01-30] MEDS ORDERED: D10% in Water 500 ML IVC PRN (13:33)
[2017-01-30] MEDS ORDERED: Ondansetron 4 MG/2 ML VIAL IVP PRN (13:35)
[2017-01-30] MEDS ORDERED: Clinimix E 5%-15% SOLUTION 2,000 ML with MVI, adult with vitamin K 10 ML IVC SCH (17:00)
--- NOTE | 2017-01-30 18:33 | Anesthesia Evaluation PreOp ---
<Efren Levin Morris - Last Filed: 01/30/17 18:31> Date of Encounter: 01/30/17 Time of Encounter: 18:31 - Past History Planned Operation: ERCP/post op bile leak Cardiac History: Hyperlipidemia E [employer] History: Seizures, CVA (2010 with R side paralysis), Other (depression, anxiety, chronic pain) Other Medical History: GERD Alcohol Use: unknown Drug use: none Medications and Allergies Aspirin [Lo-Dose Aspirin EC] 81 mg PO DAILY 01/27/17 [History] Atorvastatin [Lipitor] 40 mg PO HS 01/27/17 [History] Bisacodyl [Dulcolax] 5 mg PO DAILY 01/27/17 [History] Citalopram [CeleXA] 20 mg PO DAILY 01/27/17 [History] Docusate [Colace] 100 mg PO BID 01/27/17 [History] LORazepam [Ativan] 0.5 mg PO HS 01/27/17 [History] Magnesium Hydroxide [Milk of Magnesia] 400 mg PO DAILY 01/27/17 [History] Methylphenidate HCl [Ritalin] 5 mg PO DAILY 01/27/17 [History] Multivitamin [Multi-Day Vitamins] 1 each PO DAILY 01/27/17 [History] Nystatin Cream [Mycostatin Cream] 1 appl TP TID 01/27/17 [History] Omeprazole [PriLOSEC] 20 mg PO DAILY 01/27/17 [History] Oxycodone HCl [Oxaydo] 5 mg PO Q6H PRN 01/27/17 [History] Petrolatum,White [Aloe [place]] 226 gm TP DAILY 01/27/17 [History] Polyethylene Glycol 3350 [Smoothlax] 17 gm PO DAILY 01/27/17 [History] Promethazine [Phenergan] 12.5 mg PO Q6HR 01/27/17 [History] Valproic Acid [Depakene] 1,500 mg PO HS 01/27/17 [History] Allergies bacitracin Allergy (Verified 01/27/17 07:57) Anaphylaxis Neomycin Allergy (Verified 01/27/17 07:57) Anaphylaxis polymyxin B Allergy (Verified 01/27/17 07:57) Anaphylaxis - Meds/Allergy Pre-op Review Medications Reviewed: Yes Allergies Reviewed: Yes Beta Blockers on Current Med List: No Anesthesia Results - Labs 01/30/17 04:00 01/30/17 04:00 Anesthesia Exam Height: 1.68 Weight: 78 NPO (# of Hours): >8 Anesthesia Assess/Plan ASA Score: 3 (NO SUX) Modified [place] Scale for Level of Consciousness: Cooperative, oriented, and tranquil Anesthetic Plan: General Monitoring Plan: Standard Monitors Recovery Plan: PACU <Estefani Pierre - Last Filed: 01/30/17 19:41> Date of Encounter: 01/30/17 - Past History Other Medical History: Denies Any Significant HX Anesthesia History: No Prior Anesthetic Complications Anesthesia Results - Labs 01/30/17 04:00 01/30/17 04:00 Anesthesia Exam Last Vital Signs Temp 98.8 F 01/30/17 12:03 Pulse 97 01/30/17 12:03 Resp 18 01/30/17 12:03 BP 151/83 01/30/17 12:03 Pulse Ox 93 01/30/17 12:03 - HEENT Pupil (Motor): Pupils equal, EOMI Mallampati: II Teeth: Missing - E [employer] LOC: Unable to assess (patient with aphasia) E [employer] Motor: Deficit RUE [employer] Sensory: Deficit: RLE - Cardiac Rhythm: Regular - Pulmonary Breath Sounds: bilateral Clear Respiratory Effort: Symmetrical
[2017-01-30] MEDS: *HR* Heparin 5,000 UNIT/ML VIAL SQ SCH (18:59)
[2017-01-30] MEDS: Piperacillin/Tazobactam 3.375 GM in D5% in Water (Mini-Bag+) 100 ML IVPB SCH (18:59)
[2017-01-30] MEDS ORDERED: *HR* Rocuronium Bromide 50 MG/5 ML VIAL ONE (19:53)
[2017-01-30] MEDS ORDERED: *HR* FentaNYL (PF) 100 MCG/2 ML VIAL ONE ×2 (19:53→21:09)
[2017-01-30] MEDS ORDERED: Dexamethasone 4 MG/ML VIAL ONE (19:53)
[2017-01-30] MEDS ORDERED: Lidocaine -MPF 2% 2 ML VIAL ONE (19:53)
[2017-01-30] MEDS ORDERED: *HR* Propofol 200 MG/20 ML VIAL IVP ONE (19:53)
[2017-01-30] MEDS ORDERED: Ondansetron 4 MG/2 ML VIAL ONE (19:53)
[2017-01-30] MEDS ORDERED: *HR* Phenylephrine 10 MG/ML VIAL ONE (19:53)
[2017-01-30] MEDS ORDERED: *HR* Etomidate 20 MG/10 ML AMPUL IVP ONE (20:11)
[2017-01-30] MEDS ORDERED: Neostigmine Methylsulfate 3 MG/3 ML SYRINGE ONE (21:40)
[2017-01-30] MEDS ORDERED: *HR* Labetalol 20 MG/4 ML SYRINGE IVP PRN (22:25)
[2017-01-30] MEDS ORDERED: Indomethacin 50 MG SUPP.RECT RC ONE (22:33)
--- NOTE | 2017-01-30 22:41 | Anesthesia Evaluation Post Op ---
Date of Encounter: 01/30/17 Time of Encounter: 22:41 - Vital Signs Vital Signs: Last Vital Signs Temp 98 F 01/30/17 22:18 Pulse 70 01/30/17 22:38 Resp 16 01/30/17 22:38 BP 156/82 01/30/17 22:38 Pulse Ox 93 01/30/17 22:38 - Lungs Lungs: Clear Ascult./Percussion - Airway Airway: Non-obstructed - Cardiovascular Regular Rate - Mental Status Mental Status: Baseline Status (s/p CVA; has aphasia) - Pain Pain Scale used: Unable to assess - Nausea Vomiting Nausea Vomiting: Unable to assess - Hydration Hydration: NPO, Akers catheter - Discharge PostOp Status: Transfer Patient to floor
[2017-01-31] MEDS: Valproic Acid INJ 500 MG in 0.9 % Sodium Chloride 100 ML IVPB SCH ×3 (00:23→15:26)
[2017-01-31] MEDS: Piperacillin/Tazobactam 3.375 GM in D5% in Water (Mini-Bag+) 100 ML IVPB SCH ×3 (00:24→15:26)
[2017-01-31] MEDS ORDERED: D5% in Water 1,000 ML IVC PRN (01:45)
[2017-01-31] MEDS ORDERED: Dextrose Gel 15 GM PO PRN ×2 (01:45)
[2017-01-31] MEDS ORDERED: *HR* Dextrose 50 % in Water (Syg) 50 ML SYRINGE IVP PRN (01:45)
[2017-01-31] MEDS: Insulin LISPRO 300 UNITS/3 ML VIAL SQ SCH ×5 (03:21→20:19)
[2017-01-31 04:13] LABS: BUN/Creatinine Ratio 21 (6-26); Blood Urea Nitrogen 18 mg/dL (8-26); Calcium 8.1 mg/dL (8.6-10.8); Carbon Dioxide 26 mEq/L (19-29); Chloride 107 mEq/L (98-109); Glucose 308 mg/dL (70-99); Magnesium 1.5 mg/dL (1.6-2.6); Osmolality,Calculated 308 (280-300); Phosphorous 2.6 mg/dL (2.3-4.7); Potassium 4.1 mEq/L (3.5-4.5); Sodium 142 mEq/L (136-145); Triglycerides 124 mg/dL (< 150); eGFR For African Americans > 60 (> 60); eGFR For Non-African Americans > 60 (> 60)
[2017-01-31] MEDS: Ipratropium/Albuterol Neb 3 ML IH SCH ×4 (04:18→21:45)
[2017-01-31] MEDS: *HR* Heparin 5,000 UNIT/ML VIAL SQ SCH ×2 (05:34→18:47)
[2017-01-31] MEDS: *HR* HYDROmorphone (PF) 1 MG/ML SYRINGE IVP PRN ×3 (08:08→17:42)
[2017-01-31] MEDS: 0.9 % Sodium Chloride 1,000 ML IVC SCH (08:17)
[2017-01-31] MEDS ORDERED: Magnesium Sulfate 2 GM in D5% in Water 100 ML IVPB ONE (08:21)
[2017-01-31] MEDS: Pantoprazole 40 MG VIAL IVP SCH (08:56)
[2017-01-31 09:05] LABS: Hemoglobin 10.7 g/dL (12.9-16.9); Mean Corpuscular HGB Conc 32.4 g/dL (31.6-35.5); Mean Corpuscular Volume 92.4 fL (83.0-100.0); Mean Platelet Volume 9.8 fL (9.4-12.4); Platelet Count 194 K/mcL (140-400); Red Blood Count 3.57 M/mcL (4.19-5.50); Red Cell Distribution Width 13.7 % (11.5-14.5); Segmented Neutrophils % 83.1 %
[2017-01-31 09:06] LABS: Basophils # 0.1 K/mcL (0.0-0.2); Basophils % 0.6 %; Immature Granulocytes % 3.9 % (0-4); Lymphocytes # 0.6 K/mcL (0.6-4.6); Lymphocytes % 5.5 %; Monocytes # 0.7 K/mcL (0.0-1.3); Monocytes % 6.9 %; Neutrophils # 8.7 K/mcL (1.6-8.9)
[2017-01-31 09:16] LABS: Albumin 1.2 g/dL (3.5-5.0); Albumin/Globulin Ratio 0.3 (1.1-2.2); Bilirubin,Direct 0.2 mg/dL (0.0-0.5); Bilirubin,Indirect 0.2 mg/dL (0.0-1.2); Bilirubin,Total 0.4 mg/dL (0.2-1.2); Globulin 3.8 g/dL (2.4-3.5)
[2017-01-31] MEDS: Multivit/Ca/Min/Fe/FA 1 TAB TABLET PO SCH (10:13)
--- NOTE | 2017-01-31 12:21 | General Surgery Progress Note ---
Date of Encounter: 01/31/17 Time of Encounter: 11:45 - Assessment and Plan (1) Acute cholecystitis Current Visit: Yes Status: Acute POD #4 laparoscopic converted to open cholecystectomy with Dr. Ray NPO TPN- total fluid rate 100ml/hour Shipping/Receiving Manager consulted s/p ERCP for bile leak- stent placed IV fluids- total fluid rate 100ml/hour (MIV+TPN) IV antibiotics started 01/30/17- Zosyn SAIMA drain to bulb suction Supportive care/pain control IS every 1 hour while awake Repeat am labs (2) Seizure disorder Current Visit: Yes Status: Chronic continue Depacon IV Seizure precautions (3) GERD (gastroesophageal reflux disease) Current Visit: Yes Status: Chronic PPI therapy daily Qualifiers: Esophagitis presence: esophagitis presence not specified Qualified Code(s) : K21.9 - Gastro-esophageal reflux disease without esophagitis (4) History of CVA (cerebrovascular accident) Current Visit: Yes Status: Acute Right sided paralysis (5) Hyperglycemia Current Visit: Yes Status: Acute High sliding scale insulin coverage every 4 hours added today Continue to monitor and adjust as necessary (6) Bile leak, postoperative Current Visit: Yes Status: Acute s/p ERCP and stent placement Significant improvement in SAIMA drainage CT shows small fluid collection not amenable to percutaneous drainage- Zosyn added 01/30/17 (7) DVT prophylaxis Current Visit: Yes Status: Acute EPCDs to bilateral lower extremities for DVT prophylaxis Heparin 5,000 units SQ twice daily for DVT prophylaxis (8) Postoperative ileus Current Visit: Yes Status: Acute post op ileus is not unexpected given surgical procedure and bile leak await return of bowel function, minimal bowel sounds and no flatus Subjective Patient reports: no new complaints, still having pain (Unable to communicate whether pain is better ), afebrile (Tmax 99.8), other (Patient resting in bed in no obvious distress. ) Narrative: still complaining of nausea but seems to have less abdominal pain, denies passing flatus Objective Vital Signs - Last 8 Hours Temp Pulse Resp BP Pulse Ox 01/31/17 11:00 97.8 F 63 12 110/65 99 01/31/17 08:00 97.9 F 70 14 147/87 99 01/31/17 07:13 97.5 F L 72 16 155/79 99 Intake and Output 01/30/17 01/31/17 01/31/17 23:59 07:59 15:59 Intake Total 2053 1184 / 1184 749 / 749 Output Total 490 / 490 0 / 0 300 / 300 Balance 1564 / 1564 1184 / 1184 449 / 449 Intake: IV Fluids 2053 1184 / 1184 749 / 749 0.9 % Sodium Chloride 1, 1849 / 1849 294 / 294 644 / 644 000 ML @ 100 mls/hr IVC . Q10H [facility] Rx#:[id number] Clinimix E 5%-15% 435 / 435 SOLUTION 2,000 ML @ 50 mls/hr IVC .Q24H [facility] with M.v.i. Adult 10 ml Rx#: [id number] Intralipid 20% 250 ML @ 250 / 250 21 mls/hr IVPB DAILY@1700 [facility] Rx#:[id number] Zosyn 3.375 GM In 100 / 100 100 / 100 Dextrose 5% (Minibag+) 100 ML 100 ML @ 25 mls/hr IVPB Q8HR [facility] Rx#: [id number] Depacon 500 MG In 0.9 % 105 / 105 105 / 105 105 / 105 Sodium Chloride 100 ML @ 100 mls/hr IVPB Q8HR [facility] Rx#:[id number] Oral 0 / 0 Output: Urine 300 / 300 Urethral (Granado) 300 / 300 Catheter 400 / 400 0 / 0 Wound Drainage 90 / 90 0 / 0 0 / 0 Right Lower Abdomen 90 / 90 0 / 0 0 / 0 Other: Meal NPO Weight 81.4 kg Blood Glucose* 228 296 194 Patient Weight 01/31/17 23:59 Weight 81.4 kg - General physical appearance well developed, no distress, chronically ill, other (Patient resting comfortably at this time) - Eyes normal ocular movement - ENT dry mucosa, atraumatic, normocephalic - Neck Neck exam: trachea midline - Respiratory normal respiratory effort, clear to auscultation, other (diminished bibasilar bases) - Cardiovascular Cardiovascular exam: Present: RRR - Abdomen Abdomen: Present: bowel sounds present (minimal, hypoactive), soft, distended, tender (generalized tenderness (no peritonitis noted)), wound (SAIMA drain with scant amount of bilious drainage noted (significant decrease in output since ERCP); NG tube to LIWS (minimal output noted)) - Incision Incision: Present: clean and dry, intact - Genitourinary other (granado catheter to SD with clear, yellow urine noted (400ml since midnight )) - Integumentary no rash, no growths, other (anasarca) - Neurologic CN 2-12 grossly intact - Psychiatric oriented to person, oriented to place - Labs 01/31/17 08:50 01/31/17 03:41 Short CBC 01/31/17 Range/Units 08:50 WBC 10.5 (4.3-11.1) K/mcL Hgb 10.7 L (12.9-16.9) g/dL Hct 33.0 L (37.5-50.1) % Plt Count 194 (140-400) K/mcL Neutrophils # 8.7 (1.6-8.9) K/mcL BMP 01/31/17 Range/Units 03:41 Sodium 142 (136-145) mEq/L Potassium 4.1 (3.5-4.5) mEq/L Chloride 107 (98-109) mEq/L Carbon Dioxide 26 (19-29) mEq/L BUN 18 (8-26) mg/dL Creatinine 0.84 (0.72-1.25) mg/dL Glucose 308 H (70-99) mg/dL Calcium 8.1 L (8.6-10.8) mg/dL Liver Function 01/31/17 Range/Units 08:50 Total Bilirubin 0.4 (0.2-1.2) mg/dL Direct Bilirubin 0.2 (0.0-0.5) mg/dL AST 27 (5-34) Units/L ALT 22 (0-55) Units/L Alkaline Phosphatase 71 (38-126) Units/L Albumin 1.2 L (3.5-5.0) g/dL Vital Signs Temp Pulse Resp BP Pulse Ox 01/31/17 15:02 97.2 F L 67 18 140/70 99 01/31/17 11:00 97.8 F 63 12 110/65 99 01/31/17 08:00 97.9 F 70 14 147/87 99 01/31/17 07:13 97.5 F L 72 16 155/79 99 01/31/17 03:11 98.2 F 75 18 142/74 97 01/30/17 23:12 99.8 F H 67 17 128/83 94 01/30/17 22:48 98.1 F 67 16 148/72 93 01/30/17 22:38 70 16 156/82 93 01/30/17 22:28 73 16 159/84 94 01/30/17 22:18 98 F 88 16 193/99 97 Intake and Output 01/31/17 01/31/17 01/31/17 07:59 15:59 23:59 Intake Total 1184 / 1184 849 / 849 Output Total 0 / 0 525 / 525 Balance 1184 / 1184 324 / 324 Intake: IV Fluids 1184 / 1184 849 / 849 0.9 % Sodium Chloride 1, 294 / 294 644 / 644 000 ML @ 100 mls/hr IVC . Q10H [facility] Rx#:[id number] Clinimix E 5%-15% 435 / 435 SOLUTION 2,000 ML @ 50 mls/hr IVC .Q24H [facility] with M.v.i. Adult 10 ml Rx#: [id number] Intralipid 20% 250 ML @ 250 / 250 21 mls/hr IVPB DAILY@1700 [facility] Rx#:[id number] Zosyn 3.375 GM In 100 / 100 100 / 100 Dextrose 5% (Minibag+) 100 ML 100 ML @ 25 mls/hr IVPB Q8HR [facility] Rx#: [id number] Depacon 500 MG In 0.9 % 105 / 105 105 / 105 Sodium Chloride 100 ML @ 100 mls/hr IVPB Q8HR [facility] Rx#:[id number] Oral 0 / 0 Output: Urine 300 / 300 Urethral (Granado) 300 / 300 Catheter 0 / 0 125 / 125 Gastric Drainage 100 / 100 Right Nare 100 / 100 Wound Drainage 0 / 0 0 / 0 Right Lower Abdomen 0 / 0 0 / 0 Other: Meal NPO Percent of Meal Consumed 0% Weight 81.4 kg Blood Glucose* 296 194 Patient Weight 01/31/17 23:59 Weight 81.4 kg - VTE Documentation of Mechanical Device: Graduated compression elastic hosiery Consult Discharge Plan - Plan Referrals: Deonna Shine SPECTROGRAPH OPERATOR [Advanced Practice Nurse] - 02/03/17 9:15 am [facility] Provider[facility] - - Attending Attestation I examined this patient and my medical decision-making was reviewed with the LOG DECKMAN/PA/Advanced Practice Nurse/Resident Physician. I agree with the documented findings, disposition and treatment plan as described except to the extent set forth below. I examined this patient and my medical decision-making was reviewed with the LOG DECKMAN/PA/Advanced Practice Nurse/Resident Physician. I agree with the documented findings, disposition and treatment plan as described except to the extent set forth below.
[2017-01-31] MEDS ORDERED: Furosemide 20 MG/2 ML VIAL IVP ONE (16:45)
[2017-01-31] MEDS ORDERED: Clinimix E 5%-15% SOLUTION 2,000 ML with MVI, adult with vitamin K 10 ML IVC SCH (17:00)
[2017-01-31] MEDS: Acetylcysteine 10% 2 ML INHSOL IH SCH ×2 (19:08→21:45)
[2017-02-01] MEDS: *HR* Promethazine 25 MG/ML VIAL IVP PRN (00:06)
[2017-02-01] MEDS: Insulin LISPRO 300 UNITS/3 ML VIAL SQ SCH ×6 (00:08→19:50)
[2017-02-01] MEDS: Valproic Acid INJ 500 MG in 0.9 % Sodium Chloride 100 ML IVPB SCH ×4 (00:09→23:57)
[2017-02-01] MEDS: Piperacillin/Tazobactam 3.375 GM in D5% in Water (Mini-Bag+) 100 ML IVPB SCH ×4 (00:11→23:59)
[2017-02-01] MEDS: *HR* HYDROmorphone (PF) 1 MG/ML SYRINGE IVP PRN ×4 (01:16→21:40)
[2017-02-01] MEDS: Acetylcysteine 10% 2 ML INHSOL IH SCH ×4 (03:41→21:04)
[2017-02-01] MEDS: Ipratropium/Albuterol Neb 3 ML IH SCH ×4 (03:41→21:04)
[2017-02-01 05:23] LABS: BUN/Creatinine Ratio 34 (6-26); Blood Urea Nitrogen 24 mg/dL (8-26); Calcium 8.2 mg/dL (8.6-10.8); Carbon Dioxide 30 mEq/L (19-29); Chloride 108 mEq/L (98-109); Glucose 126 mg/dL (70-99); Magnesium 1.3 mg/dL (1.6-2.6); Osmolality,Calculated 304 (280-300); Phosphorous 3.3 mg/dL (2.3-4.7); Potassium 3.5 mEq/L (3.5-4.5); Sodium 144 mEq/L (136-145); eGFR For African Americans > 60 (> 60); eGFR For Non-African Americans > 60 (> 60)
[2017-02-01 05:39] LABS: Basophils # 0.1 K/mcL (0.0-0.2); Basophils % 0.8 %; Eosinophils # 0.1 K/mcL (0.0-0.6); Eosinophils % 0.8 %; Hematocrit 30.3 % (37.5-50.1); Hemoglobin 9.9 g/dL (12.9-16.9); Immature Granulocytes % 5.2 % (0-4); Lymphocytes # 1.5 K/mcL (0.6-4.6); Mean Corpuscular HGB Conc 32.7 g/dL (31.6-35.5); Mean Corpuscular Volume 91.8 fL (83.0-100.0); Mean Platelet Volume 9.8 fL (9.4-12.4); Monocytes # 0.8 K/mcL (0.0-1.3); Monocytes % 9.6 %; Neutrophils # 5.4 K/mcL (1.6-8.9); Platelet Count 229 K/mcL (140-400); Red Cell Distribution Width 13.9 % (11.5-14.5); Segmented Neutrophils % 65.6 %
[2017-02-01] MEDS: *HR* Heparin 5,000 UNIT/ML VIAL SQ SCH ×2 (05:43→18:03)
[2017-02-01 06:05] LABS: Platelet Estimate Normal (Normal)
[2017-02-01] MEDS ORDERED: D5% in Water (Mini-Bag+) 100 ML IVPB ONE (07:24)
[2017-02-01] MEDS: Pantoprazole 40 MG VIAL IVP SCH (07:33)
[2017-02-01] MEDS ORDERED: Magnesium Sulfate 2 GM in D5% in Water 100 ML IVPB ONE (09:41)
--- NOTE | 2017-02-01 16:17 | General Surgery Progress Note ---
Date of Encounter: 02/01/17 Time of Encounter: 10:45 - Assessment and Plan (1) Acute cholecystitis Current Visit: Yes Status: Acute s/p converted to open cholecystectomy start clears DC ngt continue TPN until adquate po intake IV antibiotics started 01/30/17- Zosyn SAIMA drain to bulb suction Supportive care/pain control IS every 1 hour while awake Repeat am labs (2) Seizure disorder Current Visit: Yes Status: Chronic continue Depacon IV Seizure precautions (3) GERD (gastroesophageal reflux disease) Current Visit: Yes Status: Chronic PPI therapy daily Qualifiers: Esophagitis presence: esophagitis presence not specified Qualified Code(s) : K21.9 - Gastro-esophageal reflux disease without esophagitis (4) History of CVA (cerebrovascular accident) Current Visit: Yes Status: Acute Right sided paralysis (5) Hyperglycemia Current Visit: Yes Status: Acute High sliding scale insulin coverage every 4 hours Continue to monitor and adjust as necessary (6) Bile leak, postoperative Current Visit: Yes Status: Acute s/p ERCP and stent placement Significant improvement in SAIMA drainage minimal SAIMA output (7) DVT prophylaxis Current Visit: Yes Status: Acute EPCDs to bilateral lower extremities for DVT prophylaxis Heparin 5,000 units SQ twice daily for DVT prophylaxis (8) Postoperative ileus Current Visit: Yes Status: Acute starting clears Subjective Narrative: denies nausea states no flatus is hungry/thirsty afebrile Objective Vital Signs - Last 8 Hours Temp Pulse Resp BP Pulse Ox 02/01/17 15:00 94 02/01/17 14:59 98.8 F 87 18 167/83 98 02/01/17 10:39 94 02/01/17 10:33 98.1 F 78 18 109/58 94 Intake and Output 02/01/17 02/01/17 02/01/17 07:59 15:59 23:59 Intake Total 1316 / 1316 824 / 824 Output Total 415 / 415 335 / 335 Balance 901 / 901 489 / 489 Intake: IV Fluids 1316 / 1316 584 / 584 Clinimix E 5%-15% 861 / 861 275 / 275 SOLUTION 2,000 ML @ 65 mls/hr IVC .Q24H [facility] with M.v.i. Adult 10 ml Rx#: [id number] Intralipid 20% 250 ML @ 250 / 250 21 mls/hr IVPB DAILY@1700 [facility] Rx#:[id number] Magnesium Sulfate 2 GM In 104 / 104 Dextrose 5% 100 ML @ 100 mls/hr IVPB ONCE ONE Rx# :[id number] Zosyn 3.375 GM In 100 / 100 100 / 100 Dextrose 5% (Minibag+) 100 ML 100 ML @ 25 mls/hr IVPB Q8HR [facility] Rx#: [id number] Depacon 500 MG In 0.9 % 105 / 105 105 / 105 Sodium Chloride 100 ML @ 100 mls/hr IVPB Q8HR [facility] Rx#:[id number] Oral 0 / 0 240 / 240 Output: Emesis 50 / 50 Catheter 275 / 275 275 / 275 Gastric Drainage 125 / 125 0 / 0 Wound Drainage Right Lower Abdomen Other: Meal NPO Lunch Stool Size Small Stool Consistency liquid Stool Color Brown Weight 81.5 kg Blood Glucose* 184 190 Patient Weight 02/01/17 23:59 Weight 81.5 kg - General physical appearance no distress, no pain - Eyes PERRL, normal ocular movement - ENT normal mucosa - Neck Neck exam: trachea midline - Respiratory normal expansion, clear to auscultation - Cardiovascular Cardiovascular exam: Present: RRR - Abdomen Abdomen: Present: bowel sounds present (faint), soft, tender (minimmal) Additional Comments: SAIMA drain with bilious drainage - Incision Incision: Present: clean and dry, intact - Integumentary no rash, no growths - Neurologic normal sensation - Musculoskeletal normal posture - Psychiatric oriented to time, oriented to person, oriented to place, memory intact - Labs 02/01/17 04:55 02/01/17 04:55 Short CBC 02/01/17 Range/Units 04:55 WBC 8.2 (4.3-11.1) K/mcL Hgb 9.9 L (12.9-16.9) g/dL Hct 30.3 L (37.5-50.1) % Plt Count 229 (140-400) K/mcL Neutrophils # 5.4 (1.6-8.9) K/mcL BMP 02/01/17 Range/Units 04:55 Sodium 144 (136-145) mEq/L Potassium 3.5 (3.5-4.5) mEq/L Chloride 108 (98-109) mEq/L Carbon Dioxide 30 H (19-29) mEq/L BUN 24 (8-26) mg/dL Creatinine 0.70 L (0.72-1.25) mg/dL Glucose 126 H (70-99) mg/dL Calcium 8.2 L (8.6-10.8) mg/dL Vital Signs Temp Pulse Resp BP Pulse Ox 02/01/17 15:00 94 02/01/17 14:59 98.8 F 87 18 167/83 98 02/01/17 10:39 94 02/01/17 10:33 98.1 F 78 18 109/58 94 02/01/17 06:52 94 02/01/17 06:28 98.2 F 76 16 127/76 94 02/01/17 03:45 98.2 F 72 14 113/54 94 01/31/17 23:31 98.2 F 79 14 153/66 97 01/31/17 18:42 98.1 F 73 14 130/78 95 Intake and Output 02/01/17 02/01/17 02/01/17 07:59 15:59 23:59 Intake Total 1316 / 1316 824 / 824 Output Total 415 / 415 335 / 335 Balance 901 / 901 489 / 489 Intake: IV Fluids 1316 / 1316 584 / 584 Clinimix E 5%-15% 861 / 861 275 / 275 SOLUTION 2,000 ML @ 65 mls/hr IVC .Q24H [facility] with M.v.i. Adult 10 ml Rx#: [id number] Intralipid 20% 250 ML @ 250 / 250 21 mls/hr IVPB DAILY@1700 [facility] Rx#:[id number] Magnesium Sulfate 2 GM In 104 / 104 Dextrose 5% 100 ML @ 100 mls/hr IVPB ONCE ONE Rx# :[id number] Zosyn 3.375 GM In 100 / 100 100 / 100 Dextrose 5% (Minibag+) 100 ML 100 ML @ 25 mls/hr IVPB Q8HR [facility] Rx#: [id number] Depacon 500 MG In 0.9 % 105 / 105 105 / 105 Sodium Chloride 100 ML @ 100 mls/hr IVPB Q8HR [facility] Rx#:[id number] Oral 0 / 0 240 / 240 Output: Emesis 50 / 50 Catheter 275 / 275 275 / 275 Gastric Drainage 125 / 125 0 / 0 Wound Drainage Right Lower Abdomen Other: Meal NPO Lunch Stool Size Small Stool Consistency liquid Stool Color Brown Weight 81.5 kg Blood Glucose* 184 190 Patient Weight 02/01/17 23:59 Weight 81.5 kg - VTE Documentation of Mechanical Device: Graduated compression elastic hosiery Consult Discharge Plan - Plan Referrals: Deonna Shine HAND BOOTMAKER [Advanced Practice Nurse] - 02/03/17 9:15 am [facility] -
[2017-02-01] MEDS ORDERED: Clinimix E 5%-15% SOLUTION 2,000 ML with MVI, adult with vitamin K 10 ML IVC SCH (17:00)
[2017-02-02] MEDS: Insulin LISPRO 300 UNITS/3 ML VIAL SQ SCH ×6 (00:01→20:54)
[2017-02-02] MEDS: *HR* HYDROmorphone (PF) 1 MG/ML SYRINGE IVP PRN ×2 (01:51→07:30)
[2017-02-02] MEDS: Ipratropium/Albuterol Neb 3 ML IH SCH ×4 (03:43→22:16)
[2017-02-02] MEDS: Acetylcysteine 10% 2 ML INHSOL IH SCH ×4 (03:43→22:17)
[2017-02-02 05:34] LABS: BUN/Creatinine Ratio 37 (6-26); Blood Urea Nitrogen 25 mg/dL (8-26); Calcium 8.4 mg/dL (8.6-10.8); Carbon Dioxide 33 mEq/L (19-29); Chloride 104 mEq/L (98-109); Glucose 133 mg/dL (70-99); Magnesium 1.2 mg/dL (1.6-2.6); Osmolality,Calculated 296 (280-300); Phosphorous 3.2 mg/dL (2.3-4.7); Potassium 3.9 mEq/L (3.5-4.5); Sodium 140 mEq/L (136-145); eGFR For African Americans > 60 (> 60); eGFR For Non-African Americans > 60 (> 60)
[2017-02-02] MEDS: *HR* Heparin 5,000 UNIT/ML VIAL SQ SCH ×2 (06:23→17:30)
[2017-02-02] MEDS: Valproic Acid INJ 500 MG in 0.9 % Sodium Chloride 100 ML IVPB SCH ×2 (07:18→15:42)
[2017-02-02] MEDS: Piperacillin/Tazobactam 3.375 GM in D5% in Water (Mini-Bag+) 100 ML IVPB SCH (07:22)
[2017-02-02] MEDS: Pantoprazole 40 MG VIAL IVP SCH (07:29)
[2017-02-02] MEDS ORDERED: Magnesium Sulfate 2 GM in D5% in Water 100 ML IVPB ONE (08:07)
--- NOTE | 2017-02-02 09:40 | General Surgery Progress Note ---
Date of Encounter: 02/02/17 Time of Encounter: 09:40 - Assessment and Plan (1) Acute cholecystitis Current Visit: Yes Status: Acute s/p converted to open cholecystectomy tolerating clears, will advance to full liquids continue TPN until adquate po intake WBC WNL, no fever, chills, sweats - will d/c zosyn today SAIMA drain to bulb suction - minimal bilious output Supportive care/pain control IS every 1 hour while awake Repeat am labs low grade temps, monitor (2) Seizure disorder Current Visit: Yes Status: Chronic continue valproic acid IV Seizure precautions (3) GERD (gastroesophageal reflux disease) Current Visit: Yes Status: Chronic PPI therapy daily Qualifiers: Esophagitis presence: esophagitis presence not specified Qualified Code(s) : K21.9 - Gastro-esophageal reflux disease without esophagitis (4) History of CVA (cerebrovascular accident) Current Visit: Yes Status: Acute Right sided paralysis (5) Hyperglycemia Current Visit: Yes Status: Acute Goal sugars <180, appear to be controlled at this time. Continue High sliding scale insulin coverage every 4 hours Continue to monitor and adjust as necessary (6) Bile leak, postoperative Current Visit: Yes Status: Acute s/p ERCP and stent placement ASIMA with 25cc out yesterday, minimal out today, red tinged/serosang, no bile noted today continue to monitor. (7) DVT prophylaxis Current Visit: Yes Status: Acute EPCDs to bilateral lower extremities for DVT prophylaxis Heparin 5,000 units SQ twice daily for DVT prophylaxis (8) Postoperative ileus Current Visit: Yes Status: Resolved Patient with two BM in last 24 hours, reports he tolerated clears yesterday, BS present. Will advance diet to full liquids today. (9) Hypomagnesemia Current Visit: Yes Status: Acute replaced, monitor Subjective Narrative: Patient reports he is still having some RUQ abdominal pain and nausea. He is passing gas and had two BM in the past 24 hours. Denies subjective fevers, chills, sweats, cp, sob, vomiting. He reports he has done ok with clear liquids. [facility] Objective Vital Signs - Last 8 Hours Temp Pulse Resp BP Pulse Ox 02/02/17 07:00 99.1 F 95 18 110/65 98 02/02/17 06:43 97 02/02/17 04:17 99.3 F 102 18 166/72 97 02/02/17 01:50 99.6 F 100 18 159/79 99 Intake and Output 02/01/17 02/02/17 02/02/17 23:59 07:59 15:59 Intake Total 520 / 520 1470 / 1470 345 / 345 Output Total 100 / 100 0 / 0 Balance 420 / 420 1470 / 1470 345 / 345 Intake: IV Fluids 520 / 520 1470 / 1470 105 / 105 Clinimix E 5%-15% 305 / 305 1015 / 1015 SOLUTION 2,000 ML @ 83.3 mls/hr IVC .Q24H [facility] with M.v.i. Adult 10 ml Rx#: [id number] Intralipid 20% 250 ML @ 250 / 250 21 mls/hr IVPB DAILY@1700 [facility] Rx#:[id number] Zosyn 3.375 GM In 100 / 100 100 / 100 Dextrose 5% (Minibag+) 100 ML 100 ML @ 25 mls/hr IVPB Q8HR [facility] Rx#: [id number] Depacon 500 MG In 0.9 % 105 / 105 105 / 105 105 / 105 Sodium Chloride 100 ML @ 100 mls/hr IVPB Q8HR [facility] Rx#:[id number] Oral 0 / 0 0 / 0 240 / 240 Output: Urine 0 / 0 0 / 0 Catheter 100 / 100 Wound Drainage 0 / 0 0 / 0 Right Lower Abdomen 0 / 0 0 / 0 Other: Meal Breakfast Percent of Meal Consumed 5% # Voids 1 2 # Urine Diapers 1 1 # Bowel Movement Diapers 1 1 Blood Glucose* 152 118 - General physical appearance well developed, well nourished, other (mild pain) - Eyes PERRL, normal ocular movement - ENT normal mucosa, no hearing loss, atraumatic - Neck Neck exam: trachea midline - Respiratory normal expansion, normal respiratory effort, clear to auscultation - Cardiovascular Cardiovascular exam: Present: RRR, no murmurs/rubs/gallops - Abdomen Abdomen: Present: bowel sounds present, soft, distended (mild), tender. Absent : guarding, rebound, rigid Abdominal Tenderness: RUQ - Incision Incision: Present: clean and dry, intact, serous (small amount of serous fluid draning from RUQ incision. ), open (in one area and packed, serous drainage, no purulence) - Integumentary no growths, no abnormal pigmentation, other (multiple reaction to tape/burn) - Neurologic CN 2-12 grossly intact - Musculoskeletal normal posture - Psychiatric oriented to time, oriented to person, oriented to place - Labs 02/01/17 04:55 02/02/17 05:05 BMP 02/02/17 Range/Units 05:05 Sodium 140 (136-145) mEq/L Potassium 3.9 (3.5-4.5) mEq/L Chloride 104 (98-109) mEq/L Carbon Dioxide 33 H (19-29) mEq/L BUN 25 (8-26) mg/dL Creatinine 0.68 L (0.72-1.25) mg/dL Glucose 133 H (70-99) mg/dL Calcium 8.4 L (8.6-10.8) mg/dL Vital Signs Temp Pulse Resp BP Pulse Ox 02/02/17 07:00 99.1 F 95 18 110/65 98 02/02/17 06:43 97 02/02/17 04:17 99.3 F 102 18 166/72 97 02/02/17 01:50 99.6 F 100 18 159/79 99 02/01/17 23:53 97.4 F L 84 18 141/70 99 02/01/17 19:37 97.9 F 86 18 146/71 94 02/01/17 18:11 94 02/01/17 15:00 94 02/01/17 14:59 98.8 F 87 18 167/83 98 02/01/17 10:39 94 02/01/17 10:33 98.1 F 78 18 109/58 94 Intake and Output 02/01/17 02/02/17 02/02/17 23:59 07:59 15:59 Intake Total 520 / 520 1470 / 1470 345 / 345 Output Total 100 / 100 0 / 0 Balance 420 / 420 1470 / 1470 345 / 345 Intake: IV Fluids 520 / 520 1470 / 1470 105 / 105 Clinimix E 5%-15% 305 / 305 1015 / 1015 SOLUTION 2,000 ML @ 83.3 mls/hr IVC .Q24H [facility] with M.v.i. Adult 10 ml Rx#: [id number] Intralipid 20% 250 ML @ 250 / 250 21 mls/hr IVPB DAILY@1700 [facility] Rx#:[id number] Zosyn 3.375 GM In 100 / 100 100 / 100 Dextrose 5% (Minibag+) 100 ML 100 ML @ 25 mls/hr IVPB Q8HR [facility] Rx#: [id number] Depacon 500 MG In 0.9 % 105 / 105 105 / 105 105 / 105 Sodium Chloride 100 ML @ 100 mls/hr IVPB Q8HR [facility] Rx#:[id number] Oral 0 / 0 0 / 0 240 / 240 Output: Urine 0 / 0 0 / 0 Catheter 100 / 100 Wound Drainage 0 / 0 0 / 0 Right Lower Abdomen 0 / 0 0 / 0 Other: Meal Breakfast Percent of Meal Consumed 5% # Voids 1 2 # Urine Diapers 1 1 # Bowel Movement Diapers 1 1 Blood Glucose* 152 118 - VTE Documentation of Mechanical Device: Graduated compression elastic hosiery Consult Discharge Plan - Plan Referrals: Deonna Shine CNP [Advanced Practice Nurse] - 02/03/17 9:15 am [facility] -
[2017-02-02] MEDS: *HR* OxyCODONE Immed Rel 5 MG TABLET PO PRN ×2 (15:44→21:39)
[2017-02-02] MEDS ORDERED: Clinimix E 5%-15% SOLUTION 2,000 ML with MVI, adult with vitamin K 10 ML IVC SCH (17:00)
[2017-02-03] MEDS: *HR* HYDROmorphone (PF) 1 MG/ML SYRINGE IVP PRN (00:02)
[2017-02-03] MEDS: Valproic Acid INJ 500 MG in 0.9 % Sodium Chloride 100 ML IVPB SCH ×3 (00:05→16:39)
[2017-02-03] MEDS: *HR* Promethazine 25 MG/ML VIAL IVP PRN (00:08)
[2017-02-03] MEDS: Insulin LISPRO 300 UNITS/3 ML VIAL SQ SCH ×6 (00:29→22:29)
[2017-02-03] MEDS: *HR* OxyCODONE Immed Rel 5 MG TABLET PO PRN ×4 (03:30→17:02)
[2017-02-03 03:40] LABS: BUN/Creatinine Ratio 41 (6-26); Blood Urea Nitrogen 28 mg/dL (8-26); Calcium 8.4 mg/dL (8.6-10.8); Carbon Dioxide 33 mEq/L (19-29); Chloride 103 mEq/L (98-109); Glucose 162 mg/dL (70-99); Magnesium 1.3 mg/dL (1.6-2.6); Osmolality,Calculated 301 (280-300); Phosphorous 2.5 mg/dL (2.3-4.7); Potassium 3.8 mEq/L (3.5-4.5); Sodium 141 mEq/L (136-145); eGFR For African Americans > 60 (> 60); eGFR For Non-African Americans > 60 (> 60)
[2017-02-03] MEDS: Acetylcysteine 10% 2 ML INHSOL IH SCH ×2 (04:07→11:16)
[2017-02-03] MEDS: Ipratropium/Albuterol Neb 3 ML IH SCH ×4 (04:08→21:11)
[2017-02-03] MEDS: *HR* Heparin 5,000 UNIT/ML VIAL SQ SCH ×2 (05:35→17:03)
[2017-02-03] MEDS: Aspirin Enteric Coated 81 MG Tablet PO SCH (07:22)
[2017-02-03] MEDS ORDERED: Magnesium Sulfate 2 GM in D5% in Water 100 ML IVPB ONE (07:33)
[2017-02-03] MEDS: Magnesium Oxide 400 MG TABLET PO SCH (07:42)
[2017-02-03 08:19] LABS: Hematocrit 29.9 % (37.5-50.1); Hemoglobin 9.7 g/dL (12.9-16.9); Mean Corpuscular HGB Conc 32.4 g/dL (31.6-35.5); Mean Corpuscular Hemoglobin 29.8 pg (28.0-33.3); Mean Platelet Volume 9.3 fL (9.4-12.4); Platelet Count 260 K/mcL (140-400); Red Blood Count 3.25 M/mcL (4.19-5.50); Red Cell Distribution Width 13.8 % (11.5-14.5)
[2017-02-03 08:36] LABS: Eosinophils # 0.4 K/mcL (0.0-0.6); Lymphocytes # 3.6 K/mcL (0.6-4.6); Monocytes # 0.2 K/mcL (0.0-1.3); Neutrophils # 4.8 K/mcL (1.6-8.9)
[2017-02-03 08:37] LABS: Platelet Estimate Normal (Normal)
[2017-02-03 08:38] LABS: Reactive Lymphocytes Present (Not Present); Toxic Granulation Present (Not Present)
--- NOTE | 2017-02-03 12:26 | General Surgery Progress Note ---
Date of Encounter: 02/03/17 Time of Encounter: 10:00 - Assessment and Plan (1) Acute cholecystitis Current Visit: Yes Status: Acute s/p converted to open cholecystectomy tolerating regular, not wanting to eat a lot of what we have to offer DC tpn RUQ incision, will open a little further and place wound vac today SAIMA drainage bilious, monitor Supportive care/pain control IS every 1 hour while awake Repeat am labs low grade temps, monitor (2) Seizure disorder Current Visit: Yes Status: Chronic continue valproic acid IV Seizure precautions (3) GERD (gastroesophageal reflux disease) Current Visit: Yes Status: Chronic PPI therapy daily Qualifiers: Esophagitis presence: esophagitis presence not specified Qualified Code(s) : K21.9 - Gastro-esophageal reflux disease without esophagitis (4) History of CVA (cerebrovascular accident) Current Visit: Yes Status: Acute Right sided paralysis (5) Hyperglycemia Current Visit: Yes Status: Acute Goal sugars <180, appear to be controlled at this time. Continue High sliding scale insulin coverage every 4 hours Continue to monitor and adjust as necessary (6) Bile leak, postoperative Current Visit: Yes Status: Acute s/p ERCP and stent placement minimal bbile output continue to monitor. (7) DVT prophylaxis Current Visit: Yes Status: Acute EPCDs to bilateral lower extremities for DVT prophylaxis Heparin 5,000 units SQ twice daily for DVT prophylaxis (8) Hypomagnesemia Current Visit: Yes Status: Acute replaced, monitor start po magnesium Subjective Narrative: currently without complaints, [facility] denies [facility] abdominal pain present passing flatus and having bms Objective Vital Signs - Last 8 Hours Temp Pulse Resp BP Pulse Ox 02/03/17 10:47 97.8 F 84 22 123/75 99 02/03/17 07:00 98.5 F 104 20 153/74 94 Intake and Output 02/02/17 02/03/17 02/03/17 23:59 07:59 15:59 Intake Total 846 / 846 1506 / 1506 106 / 106 Output Total Balance 841 / 841 1486 / 1486 106 / 106 Intake: IV Fluids 606 / 606 1506 / 1506 106 / 106 Clinimix E 5%-15% 501 / 501 1151 / 1151 106 / 106 SOLUTION 2,000 ML @ 83.3 mls/hr IVC .Q24H DAVIDE with Migdaliav.i. Adult 10 ml Rx#: [id number] Intralipid 20% 250 ML @ 250 / 250 21 mls/hr IVPB DAILY@1700 [facility] Rx#:[id number] Depacon 500 MG In 0.9 % 105 / 105 105 / 105 Sodium Chloride 100 ML @ 100 mls/hr IVPB Q8HR [facility] Rx#:[id number] Oral 240 / 240 0 / 0 Output: Urine 0 / 0 Wound Drainage Right Lower Abdomen Other: Meal 3 Bites Peanut butter/Jelly Oxford (Dinner) pt refused to eat breakfast Percent of Meal Consumed 0% Stool Size Moderate Smear Stool Consistency loose liquid Stool Color Brown Brown Yellow # Urine Diapers 1 1 1 # Bowel Movement Diapers 1 1 Weight 87.7 kg Blood Glucose* 190 148 140 Patient Weight 02/03/17 23:59 Weight 87.7 kg - General physical appearance well nourished, no distress - Eyes PERRL - ENT atraumatic, normocephalic - Neck Neck exam: trachea midline - Respiratory normal expansion, clear to auscultation, other (cough) - Cardiovascular Cardiovascular exam: Present: NR, tachycardia - Abdomen Abdomen: Present: bowel sounds present, soft, non tender, distended - Incision Incision: Present: clean and dry, open (wound packed) - Integumentary no growths, other (tape burn on abdomen) - Neurologic normal sensation - Musculoskeletal normal posture - Psychiatric oriented to time, oriented to person, oriented to place - Labs 02/03/17 08:12 02/03/17 03:15 Short CBC 02/03/17 Range/Units 08:12 WBC 8.9 (4.3-11.1) K/mcL Hgb 9.7 L (12.9-16.9) g/dL Hct 29.9 L (37.5-50.1) % Plt Count 260 (140-400) K/mcL Neutrophils # 4.8 (1.6-8.9) K/mcL BMP 02/03/17 Range/Units 03:15 Sodium 141 (136-145) mEq/L Potassium 3.8 (3.5-4.5) mEq/L Chloride 103 (98-109) mEq/L Carbon Dioxide 33 H (19-29) mEq/L BUN 28 H (8-26) mg/dL Creatinine 0.68 L (0.72-1.25) mg/dL Glucose 162 H (70-99) mg/dL Calcium 8.4 L (8.6-10.8) mg/dL Vital Signs Temp Pulse Resp BP Pulse Ox 02/03/17 10:47 97.8 F 84 22 123/75 99 02/03/17 07:00 98.5 F 104 20 153/74 94 02/03/17 03:19 98.9 F 104 24 152/85 99 02/03/17 00:38 100.1 F H 91 17 157/87 97 02/02/17 19:30 98.9 F 90 17 151/83 99 02/02/17 16:00 98.0 F 92 16 127/70 98 02/02/17 15:05 95 Intake and Output 02/02/17 02/03/17 02/03/17 23:59 07:59 15:59 Intake Total 846 / 846 1506 / 1506 106 / 106 Output Total Balance 841 / 841 1486 / 1486 106 / 106 Intake: IV Fluids 606 / 606 1506 / 1506 106 / 106 Clinimix E 5%-15% 501 / 501 1151 / 1151 106 / 106 SOLUTION 2,000 ML @ 83.3 mls/hr IVC .Q24H DAVIDE with M.v.i. Adult 10 ml Rx#: [id number] Intralipid 20% 250 ML @ 250 / 250 21 mls/hr IVPB DAILY@1700 [facility] Rx#:[id number] Depacon 500 MG In 0.9 % 105 / 105 105 / 105 Sodium Chloride 100 ML @ 100 mls/hr IVPB Q8HR [facility] Rx#:[id number] Oral 240 / 240 0 / 0 Output: Urine 0 / 0 Wound Drainage 20 / 20 Right Lower Abdomen 20 Other: Meal 3 Bites Peanut butter/Jelly Oxford (Dinner) pt refused to eat breakfast Percent of Meal Consumed 0% Stool Size Moderate Smear Stool Consistency loose liquid Stool Color Brown Brown Yellow # Urine Diapers 1 1 1 # Bowel Movement Diapers 1 1 Weight 87.7 kg Blood Glucose* 190 148 140 Patient Weight 02/03/17 23:59 Weight 87.7 kg - VTE Documentation of Mechanical Device: Graduated compression elastic hosiery Consult Discharge Plan - Plan Referrals: Deonna Shine CNP [Advanced Practice Nurse] - 02/03/17 9:15 am [facility] -
[2017-02-03] MEDS ORDERED: Acetaminophen 325 MG TABLET PO PRN (12:29)
[2017-02-04] MEDS: Valproic Acid INJ 500 MG in 0.9 % Sodium Chloride 100 ML IVPB SCH ×3 (00:12→18:03)
[2017-02-04] MEDS: *HR* OxyCODONE Immed Rel 5 MG TABLET PO PRN ×3 (00:13→14:05)
[2017-02-04] MEDS: Insulin LISPRO 300 UNITS/3 ML VIAL SQ SCH ×5 (00:16→21:51)
[2017-02-04] MEDS: Ipratropium/Albuterol Neb 3 ML IH SCH ×4 (03:25→22:03)
[2017-02-04 04:45] LABS: Eosinophils # 0.1 K/mcL (0.0-0.6); Hematocrit 30.2 % (37.5-50.1); Mean Corpuscular HGB Conc 33.1 g/dL (31.6-35.5); Mean Corpuscular Hemoglobin 30.5 pg (28.0-33.3); Mean Corpuscular Volume 92.1 fL (83.0-100.0); Mean Platelet Volume 9.7 fL (9.4-12.4); Platelet Count 287 K/mcL (140-400); Red Blood Count 3.28 M/mcL (4.19-5.50); Red Cell Distribution Width 13.9 % (11.5-14.5)
[2017-02-04 05:32] LABS: Lymphocytes # 2.5 K/mcL (0.6-4.6); Monocytes # 0.6 K/mcL (0.0-1.3); Neutrophils # 5.4 K/mcL (1.6-8.9); Platelet Estimate Normal (Normal)
[2017-02-04 05:33] LABS: Reactive Lymphocytes Present (Not Present)
[2017-02-04] MEDS: *HR* Heparin 5,000 UNIT/ML VIAL SQ SCH ×2 (05:34→18:04)
[2017-02-04] MEDS: Aspirin Enteric Coated 81 MG Tablet PO SCH (07:44)
[2017-02-04] MEDS: Magnesium Oxide 400 MG TABLET PO SCH (07:44)
[2017-02-04] MEDS: *HR* HYDROmorphone (PF) 1 MG/ML SYRINGE IVP PRN (07:57)
[2017-02-04] MEDS ORDERED: Magnesium Sulfate 2 GM in D5% in Water 100 ML IVPB ONE (08:25)
--- NOTE | 2017-02-04 10:40 | Discharge Summary ---
Date of Encounter: 02/04/17 Time of Encounter: 10:30 - Discharge Diagnosis (1) Acute cholecystitis Priority: Primary Status: Resolved (2) Seizure disorder Priority: Secondary Status: Chronic (3) Hypercholesteremia Priority: Secondary Status: Chronic (4) GERD (gastroesophageal reflux disease) Priority: Secondary Status: Chronic Qualifiers: Esophagitis presence: esophagitis presence not specified Qualified Code(s) : K21.9 - Gastro-esophageal reflux disease without esophagitis (5) History of CVA (cerebrovascular accident) Priority: Secondary Status: Acute (6) Hyperglycemia Priority: Secondary Status: Resolved (7) Bile leak, postoperative Priority: Secondary Status: Resolved - Discharge Medications Prescriptions: Oxycodone HCl [Oxaydo] 5 mg PO Q6H PRN #30 tablet.orl PRN Reason: Moderate Pain Home Medications: Aspirin [Lo-Dose Aspirin EC] 81 mg PO DAILY 01/27/17 [History] Atorvastatin [Lipitor] 40 mg PO HS 01/27/17 [History] Bisacodyl [Dulcolax] 5 mg PO DAILY 01/27/17 [History] Citalopram [CeleXA] 20 mg PO DAILY 01/27/17 [History] Docusate [Colace] 100 mg PO BID 01/27/17 [History] LORazepam [Ativan] 0.5 mg PO HS 01/27/17 [History] Magnesium Hydroxide [Milk of Magnesia] 400 mg PO DAILY 01/27/17 [History] Methylphenidate HCl [Ritalin] 5 mg PO DAILY 01/27/17 [History] Multivitamin [Multi-Day Vitamins] 1 each PO DAILY 01/27/17 [History] Nystatin Cream [Mycostatin Cream] 1 appl TP TID 01/27/17 [History] Omeprazole [PriLOSEC] 20 mg PO DAILY 01/27/17 [History] Petrolatum,White [Aloe Teaberry] 226 gm TP DAILY 01/27/17 [History] Polyethylene Glycol 3350 [Smoothlax] 17 gm PO DAILY 01/27/17 [History] Promethazine [Phenergan] 12.5 mg PO Q6HR 01/27/17 [History] Valproic Acid [Depakene] 1,500 mg PO HS 01/27/17 [History] Oxycodone HCl [Oxaydo] 5 mg PO Q6H PRN #30 tablet.orl 02/04/17 [Rx] Allergies/Adverse Reactions: Allergies bacitracin Allergy (Verified 01/27/17 07:57) Anaphylaxis Neomycin Allergy (Verified 01/27/17 07:57) Anaphylaxis polymyxin B Allergy (Verified 01/27/17 07:57) Anaphylaxis General Surgery Exam Initial Vital Signs Temp Pulse Resp BP Pulse Ox 97.4 F L 102 16 122/79 91 01/27/17 06:44 01/27/17 06:44 01/27/17 06:44 01/27/17 06:44 01/27/17 06:44 - General physical appearance no distress, moderate pain, chronically ill - Eyes normal ocular movement - ENT normal mucosa, atraumatic, normocephalic - Neck trachea midline - Respiratory normal respiratory effort, clear to auscultation, other (diminished bibasilar bases) - Cardiovascular Cardiovascular exam: Present: RRR, 15, 16 - Abdomen Abdomen general surgery: Present: bowel sounds present, soft, tender (expected post-operative tenderness), wound (RUQ with glory and wound vac to lateral aspect (small amount of serous drainage noted); SAIMA drain to bulb suction with small amount of serous drainage noted) - Incision Incision: Present: open (RUQ with glory and wound vac to lateral aspect ( small amount of serous drainage noted); SAIMA drain to bulb suction with small amount of serous drainage noted) - Integumentary Integumentary general surgery: Present: warm and dry - Musculoskeletal Present: other (deconditioning noted; 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) - Psychiatric Psychiatric general surgery: Present: oriented to person, oriented to place Date of admission: 01/27/17 11:04 Primary care physician: PCP MA Consults: 01/27/17 11:04 Consult to Rag Sorter And Cutter [CONS] Routine Reason for SW Consult: [email or web address] 01/29/17 16:06 Consult to Invasive Line Access Team [CONS] Routine Reason for Consult: Picc Line Insertion Line Type: EPIV 01/30/17 09:05 Consult to Gastroenterology [CONS] Routine Consulting Provider: [facility] [place] Reason for Consult: bile leak after lap converted to open cholecystectomy, SAIMA in place Time Notified: 09:05 Call Completed: Yes 01/30/17 13:31 Consult to Invasive Line Access Team [CONS] Routine Reason for Consult: Picc Line Insertion Line Type: PICC 01/30/17 13:35 Consult to Nutrition [CONS] Routine Comment: Consulting Provider: NUTRITION Reason for Dietary Consult: TPN Start and Manage Discharging clinician: Tanesha Ray (Edil Shine) Anticipated date of discharge: 02/04/17 - Patient Status Disposition: Transfer Inpatient Rehab Fac Condition: Good Functional capacity at discharge: wheelchair bound Overall status at discharge: patient is not back to baseline - Discharge Instructions [facility] Up With: [facility] - Deonna Shine MOBILE HEAVY EQUIPMENT OPERATOR [Advanced Practice Nurse] - Tanesha Ray MD [Partnered Physician] - 02/19/17 9:35 am (surgery follow-up ) Additional Instructions: Surgical instructions: #1 May shower, no tub bath #2 Wash incisions with soap and water, pat dry daily #3 No lifting/pushing/pulling greater than 15 lb. for a total of 6 weeks from the date of surgery #4 Wound vac- change every M-W- (small black foam at 125mmHG continuous suction ) #5 SAIMA drain- cleanse around drain with soap and water and pat dry daily; empty drain twice daily and prn if full (bring drain records to f/u appointment on with Dr. Ray. - Diet and Activity Activity: increase activity as tolerated Diet: advance to your usual diet - Hospital Course Hospital course: Mr. De Anda is a 67 year old male s/p Open cholecystectomy for acute cholecystitis. His post-operative course was complicated with a bile leak and post-operative ileus. He did undergo ERCP with gastroenterology and did have a stent placed. His post-operative leak resolved with stent placement. He experienced a post-operative ileus and was treated conservatively with bowel rest. His diet was slowly advanced with return of bowel function. He is currently tolerating a soft diet without nausea/vomiting. His vital signs are stable and he is afebrile. His pain is well controlled. His laboratory values are stable and he has a normal WBC count. He does have a wound vac to his surgical incision due to post-operative seroma. We will begin discharge planning and plan for outpatient follow-up in the next 10-14 days. - Time Spent with Patient Total time spent providing and/or coordinating discharge services: Greater than 30 minutes Labs on day of discharge: Labs from last 24 hours 02/04/17 02/04/17 02/04/17 09:00 05:14 04:15 WBC RBC Hgb Hct MCV MCH MCHC RDW Plt Count MPV Seg Neutrophils % Lymphocytes % Monocytes % Eosinophils % Myelocytes % Neutrophils # Lymphocytes # Monocytes # Eosinophils # Reactive Lymphocytes Platelet Estimate POC Glucose 114 H 108 H Magnesium 1.3 L 02/04/17 02/04/17 02/03/17 04:15 00:10 22:29 WBC 8.8 RBC 3.28 L Hgb 10.0 L Hct 30.2 L MCV 92.1 MCH 30.5 MCHC 33.1 RDW 13.9 Plt Count 287 MPV 9.7 Seg Neutrophils % 61.0 Lymphocytes % 28.0 Monocytes % 7.0 Eosinophils % 1.0 Myelocytes % 3.0 H Neutrophils # 5.4 Lymphocytes # 2.5 Monocytes # 0.6 Eosinophils # 0.1 Reactive Lymphocytes Present A Platelet Estimate Normal POC Glucose 97 H 104 H Magnesium 02/03/17 02/03/17 15:03 10:57 WBC RBC Hgb Hct MCV MCH MCHC RDW Plt Count MPV Seg Neutrophils % Lymphocytes % Monocytes % Eosinophils % Myelocytes % Neutrophils # Lymphocytes # Monocytes # Eosinophils # Reactive Lymphocytes Platelet Estimate POC Glucose 139 H 140 H Magnesium - Impressions ITS Impressions KUB X-Ray 01/28/17 19:27 IMPRESSION: Gastric tube loops near the gastroesophageal junction with the tip and sideport both in the gastric fundus. D/ / Cornelio Shoemaker MD / Cornelio Shoemaker MD Interpreting Provider: Cornelio Shoemaker MD X-Ray 01/28/17 23:05 IMPRESSION: The enteric tube is in good position in the stomach. D/ / Mazin Rodriguez MD / Mazin Rodriguez MD Interpreting Provider: Mazin Rodriguez MD Bile Acid Absorption NM 01/29/17 13:25 IMPRESSION: No evidence for bile leak. D/ / Josep Randhawa MD / Josep Randhawa MD Interpreting Provider: Josep Randhawa MD Abdomen X-Ray 01/30/17 08:00 IMPRESSION: 1. Enteric tube coiled in the stomach at the level of the cardia with the tip directed towards the fundus. 2. No significant adynamic ileus. D/ / 01/30/2017 11:54:42 Sunny Vega MD / shauna Interpreting Provider: Sunny Vega MD Abdomen/Pelvis CT 01/30/17 13:36 IMPRESSION: Given the additional information of a recent postoperative CT examination, correlated with the recent nuclear medicine exam, there is a small collection of fluid seen just anterior to the liver surface, as well as focally along the surgical drain, axial images 34 and 47, suspicious for a small amount of fluid related to a bile leak. There is a small fluid and gas collection seen in the right mid abdomen, measuring 2.5 x 1.8 cm suspicious for a postoperative abscess. However, this collection is too small for the ability to place a percutaneous drain. Small hiatal hernia. The enteric tube is coiled within the gastric antrum. Postsurgical changes are seen in the right lateral abdominal wall and supraumbilical region. D/ / Angel Nash MD / Angel Nash MD Interpreting Provider: Angel Nash MD Cath/Invasive Procedure 01/30/17 20:35 IMPRESSION: Fluoroscopy provided for ERCP procedure. Please see the intraoperative note for complete details. D/ / 01/31/2017 07:08:59 Angel Keating MD / steff Interpreting Provider: Angel Keating MD X-Ray 01/30/17 22:35 IMPRESSION: The enteric tube is in good position in the stomach. D/ / Mazin Rodriguez MD / Mazin Rodriguez MD Interpreting Provider: Mazin Rodriguez MD - Attending Attestation I examined this patient and my medical decision-making was reviewed with the DEFENSE ATTORNEY/PA/Advanced Practice Nurse/Resident Physician. I agree with the documented findings, disposition and treatment plan as described except to the extent set forth below.
--- NOTE | 2017-02-04 10:59 | Physician Discharge Referral ---
ExtendedCare Referral Info Transfer To: [facility] Provider in Charge: Dr. Tanesha Ray Provider in Charge after Transfer: Other ([facility] physician) Institutional Level of Care: Skilled - Diagnosis (1) Acute cholecystitis Priority: Primary Status: Resolved (2) Seizure disorder Priority: Secondary Status: Chronic (3) Hypercholesteremia Priority: Secondary Status: Chronic (4) GERD (gastroesophageal reflux disease) Priority: Secondary Status: Chronic (5) History of CVA (cerebrovascular accident) Priority: Secondary Status: Acute (6) Hyperglycemia Priority: Secondary Status: Resolved (7) Bile leak, postoperative Priority: Secondary Status: Resolved Expected Duration of Placement: [facility] care Prognosis: Good Aware of Diagnosis: Patient Aware of Prognosis: Patient - Transfer Medications Prescriptions: Oxycodone HCl [Oxaydo] 5 mg PO Q6H PRN #30 tablet.orl PRN Reason: Moderate Pain Home Medications: Aspirin [Lo-Dose Aspirin EC] 81 mg PO DAILY 01/27/17 [History] Atorvastatin [Lipitor] 40 mg PO HS 01/27/17 [History] Bisacodyl [Dulcolax] 5 mg PO DAILY 01/27/17 [History] Citalopram [CeleXA] 20 mg PO DAILY 01/27/17 [History] Docusate [Colace] 100 mg PO BID 01/27/17 [History] LORazepam [Ativan] 0.5 mg PO HS 01/27/17 [History] Magnesium Hydroxide [Milk of Magnesia] 400 mg PO DAILY 01/27/17 [History] Methylphenidate HCl [Ritalin] 5 mg PO DAILY 01/27/17 [History] Multivitamin [Multi-Day Vitamins] 1 each PO DAILY 01/27/17 [History] Nystatin Cream [Mycostatin Cream] 1 appl TP TID 01/27/17 [History] Omeprazole [PriLOSEC] 20 mg PO DAILY 01/27/17 [History] Petrolatum,White [Aloe Crystal] 226 gm TP DAILY 01/27/17 [History] Polyethylene Glycol 3350 [Smoothlax] 17 gm PO DAILY 01/27/17 [History] Promethazine [Phenergan] 12.5 mg PO Q6HR 01/27/17 [History] Valproic Acid [Depakene] 1,500 mg PO HS 01/27/17 [History] Oxycodone HCl [Oxaydo] 5 mg PO Q6H PRN #30 tablet.orl 02/04/17 [Rx] Allergies/Adverse Reactions: Allergies bacitracin Allergy (Verified 01/27/17 07:57) Anaphylaxis Neomycin Allergy (Verified 01/27/17 07:57) Anaphylaxis polymyxin B Allergy (Verified 01/27/17 07:57) Anaphylaxis - Respiratory Orders None - Ancillary Orders May use pressure relief devices daily prn, May consult with Dentist, Leather Worker, Bead Picker PRN - Advance Directives Code Status: Full Code - Mobility Orders Chair - Rehabiliation Orders Rehab Potential: Fair Rehab Orders: ROM Exercises, Evaluation for Physical Therapy, Evaluation for Occupational Therapy - Treatments Skin tear care topically daily PRN per policy List/Other: Surgical instructions: #1 May shower, no tub bath #2 Wash incisions with soap and water, pat dry daily #3 No lifting/pushing/pulling greater than 15 lb. for a total of 6 weeks from the date of surgery #4 Wound vac- change every M-W- (small black foam at 125mmHG continuous suction ) #5 SAIMA drain- cleanse around drain with soap and water and pat dry daily; empty drain twice daily and prn if full (bring drain records to f/u appointment on with Dr. Ray. - Diet Orders Regular CERTIFICATION: I certify that the transfer of the above named patient to an Extended Care Facility is necessary for the continuing treatment of the diagnosis listed. The above information is true and accurate reflection of patient's current condition. Confidential - Redisclosure prohibited without a patient's written consent.
[2017-02-05] MEDS: Valproic Acid INJ 500 MG in 0.9 % Sodium Chloride 100 ML IVPB SCH (01:06)
[2017-02-05] MEDS: Insulin LISPRO 300 UNITS/3 ML VIAL SQ SCH ×3 (01:11→08:03)
[2017-02-05] MEDS: Ipratropium/Albuterol Neb 3 ML IH SCH (03:53)
[2017-02-05] MEDS: *HR* Heparin 5,000 UNIT/ML VIAL SQ SCH (05:53)
[2017-02-05 07:51] VITALS: BP 121/77
[2017-02-05] MEDS: *HR* HYDROmorphone (PF) 1 MG/ML SYRINGE IVP PRN (07:51)
== END 2017-02-05 08:18 | DRG 415 ==
LOC: SAMDAY 06:27 → 3ANU 08:46
PROVIDERS: ADMIT Surgery; ATTEND Surgery